=== PATIENT | female | born 1945 | race Caucasian/White ===

== ENCOUNTER → 2017-01-13 | Outpatient (CLI) | payer BC ==
[~2017-01-13] MED LIST: ASCO500T16 PO; CALC500C3 PO; CHOL200010 PO; CLON0.5T3 PO; CLTP PO; DICL1GEL12 TOP; DOCU-94 PO; IBUP-1459 PO; LEVO50TA6 PO; MAGN400T6 PO; MISCCAP82 PO; MULT-506 PO; NXM/40 PO; OMEG10007 PO; VTMB12UNK PO; WHEAOIL4 PO; [UNRECOGNIZED DRUG - CODE] PO; [UNRECOGNIZED DRUG - OTHER] PO
--- NOTE | 2017-01-13 15:55 | MAMMOGRAPHY REPORT ---
BILATERAL DIGITAL SCREENING MAMMOGRAM WITH CAD: 01/13/2017 TECHNIQUE: Current study was also evaluated with a Computer Aided Detection (CAD) system. Bilatera l CC and MLO views were obtained. COMPARISON: Comparison is made to exams dated: 12/30/2015 mammogram, 12/07/2013 mammogram, 12/17/2014 m ammogram, 12/13/2013 mammogram, 11/23/2012 mammogram, and 11/20/2011 mammogram - [facility]. BREAST COMPOSITION: There are scattered areas of fibroglandular density in both breasts. FINDINGS: No suspicious masses, calcifications, or areas of architectural distortion are noted in e ither breast. There has been no significant interval change compared to prior exams. Bilateral jerzy gn-appearing calcifications are not significantly changed. Asymmetry seen within the left lateral b reast is stable compared to prior exams including the 2007 exam. IMPRESSION: ACR BI-RADS CATEGORY 2: BENIGN There is no mammographic evidence of malignancy. A 1 year screening mammogram is recommended. The p atient will receive written notification of the results. Approximately 10% of breast cancers are not detected with mammography. A negative mammographic repor t should not delay biopsy if a clinically suggestive mass is present. Marlene Flores M.D. ah/:01/13/2017 12:58:01 Adobe Maker: Jena GUERRA(Afsaneh)(M), [facility] letter sent: Normal 1/2 BI-RADS Code: ACR BI-RADS Category 2: Benign
== END | disposition home or self-care (01) ==
LOC: C.MAMM 11:17
PROVIDERS: ATTEND Obstetrics & Gynecology
DX: Z12.31 Encounter for screening mammogram for malignant neoplasm of breast (principal)

== ENCOUNTER → 2017-02-11 | Outpatient (CLI) | payer BC ==
[~2017-02-11] MED LIST changes: +CALC500C70 PO; +CYAN100T PO; +MISCCAP80 PO; +MISCTAB26 PO; +MISCTAB78 PO; +PYRI100T4 PO; +TURM1CAP4 PO; +VITATAB19 PO
== END | disposition home or self-care (01) ==
LOC: C.MAMM 10:37
PROVIDERS: ATTEND Family Medicine
DX: M85.88 Other specified disorders of bone density and structure, other site (principal)

== ENCOUNTER → 2017-03-04 | Outpatient (CLI) | payer BC ==
--- NOTE | 2017-03-04 11:31 | DIAGNOSTIC IMAGING REPORT ---
CHEST 2 VIEWS ROUTINE CLINICAL HISTORY: SHORTNESS OF BREATH R06.02 COMPARISON STUDY: 10/28/2015 FINDINGS: There is a thoracolumbar scoliosis. The heart remains enlarged. There is a retrocardiac opacity consistent with a hiatal hernia. There is no failure. There is no focal pulmonary consolidation. No significant pleural effusions are visualized.[ IMPRESSION: 1. Cardiomegaly and hiatal hernia 2. No active disease in the chest. Electronically signed by: Fidel Samayoa M.D. 03/04/2017 11:30 AM Dictated Date/Time: 03/04/2017 11:29 AM
== END | disposition home or self-care (01) ==
LOC: C.RAD 10:59
PROVIDERS: ATTEND Family Medicine
DX: R06.02 Shortness of breath (principal); K44.9 Diaphragmatic hernia without obstruction or gangrene; I51.7 Cardiomegaly

== ENCOUNTER → 2017-03-05 | Outpatient (CLI) | payer BC ==
[~2017-03-05] MED LIST changes: +OPTIRAY 320 IV PRN
--- NOTE | 2017-03-05 13:14 | DIAGNOSTIC IMAGING REPORT ---
CT ANGIOGRAM OF THE CHEST CLINICAL HISTORY: Dyspnea. COMPARISON STUDY: Chest x-ray dated 03/04/2017. TECHNIQUE: Following the IV administration of 86 cc of Optiray 320, CT angiogram of the chest was performed from the upper abdomen to the thoracic inlet utilizing the pulmonary embolus protocol. Images are reviewed in the axial, sagittal, and coronal planes. 3-D MIPS images are created and assessed. IV contrast was administered without complication. The examination is modestly degraded by motion artifact. CT DOSE: 184.51 mGy.cm FINDINGS: Thyroid: Imaged portions of the thyroid gland are normal in size and attenuation. A 9 mm peripherally calcified nodule is seen in the left lobe. Thoracic aorta: There is mild atherosclerotic calcification of the thoracic aorta, which is normal in caliber and demonstrates standard 3-vessel arch anatomy. No dissection is seen. Pulmonary vasculature: The pulmonary trunk is normal in caliber. There are no filling defects identified in main, lobar, or segmental pulmonary branches to suggest pulmonary embolus. Heart: The heart is enlarged and without pericardial effusion. Lungs and pleural spaces: Emphysematous change is noted. There is no airspace consolidation or pleural effusion. The trachea and central airways are clear. Atelectasis versus scarring is noted at the medial left lung base. There is a 5 mm right upper lobe nodule seen on image #182. Mediastinum: There is no mediastinal lymphadenopathy. Ani: Clear. Axillae: There is no axillary lymphadenopathy. Upper abdomen: There is a moderate to large hiatal hernia. Partially visualized upper abdominal viscera is otherwise within normal limits. Skeletal structures: The skeletal structures are osteopenic. Degenerative change and scoliosis are seen in the thoracic spine. Arthritic change is also present in the shoulders. No lytic or blastic bony lesions are seen. Hemangiomas are seen in the bodies of T3 and T12. IMPRESSION: 1. There is no evidence of pulmonary embolus in the main, lobar, or segmental pulmonary arteries. 2. Cardiomegaly and emphysema. 3. Moderate to large hiatal hernia. 4. There is no airspace consolidation or pleural effusion. 5. There is a 5 mm right apical pulmonary nodule. This can be followed as per the Fleischner criteria. See below. Please refer to below summary of Fleischner criteria recommendations for follow-up of incidental CT nodules (Grant Sandhu, Guidelines for management of small pulmonary nodules detected on CT scans: A statement from the Fleischner Society, Radiology 237: [phone].) SOLID NODULES Solitary nodule size: <6 mm * low risk patients: no follow-up needed * high risk patients: optional CT at 12 months Solitary nodule size: 6-8 mm * low risk patients: follow-up at 6-12 months, then consider further follow-up at 18-24 months * high risk patients: initial follow-up CT at 6-12 months and then at 18-24 months if no change Solitary nodule size: >8 mm * either low or high risk patients - consider follow-up CT at 3 months, and/or CT-PET, and/or biopsy Multiple nodules size: <6 mm * low risk patients: no routine follow-up * high risk patients: optional CT at 12 months Multiple nodules size: 6-8 mm * low risk patients: follow-up at 3-6 months, then consider further follow-up at 18-24 months * high risk patients: follow-up at 3-6 months, then at 18-24 months if no change Multiple nodules size: >8 mm * low risk patients: follow-up at 3-6 months, then consider further follow-up at 18-24 months * high risk patients: follow-up at 3-6 months, then at 18-24 months if no change Note: newly detected indeterminate nodule in persons 35 years of age or older. * low risk patients: minimal or absent history of smoking and/or other known risk factors * high risk patients: history of smoking or of other known risk factors (e.g. first degree relative with lung cancer, or exposure to asbestos, radon, uranium) * if a nodule up to 8 mm is partly solid or is ground glass further follow-up is required after 24 months to exclude possible slow growing adenocarcinoma (LA) SUBSOLID NODULES Solitary pure ground-glass nodule * nodule size <6 mm - no CT follow-up required * nodule size >=6 mm - follow-up CT at 6-12 months, then every 2 years until 5 years Solitary part-solid nodule * nodule size <6 mm - no CT follow-up required * nodule size >=6 mm - follow-up CT at 3-6 months. If unchanged, and solid component remains <6 mm, then annual follow-up for 5 years Multiple subsolid nodules * nodule size <6 mm - follow-up CT at 3-6 months, consider further follow-up at 2 and 4 years if stable * nodule size >=6 mm - follow-up CT at 3-6 months, subsequent management based on the most suspicious nodule(s) Electronically signed by: Horace Gonzalez M.D. 03/05/2017 1:13 PM Dictated Date/Time: 03/05/2017 1:07 PM
--- NOTE | 2017-03-05 15:16 | DIAGNOSTIC IMAGING REPORT ---
Venous Doppler left leg LEFT VENOUS DOPP LOWER EXT UNILAT CLINICAL HISTORY: PAIN IN LEFT LEG pain TECHNIQUE: Venous Doppler COMPARISON STUDY: None FINDINGS: Normal study IMPRESSION: Normal study Electronically signed by: Trenton Randle M.D. 03/05/2017 3:14 PM Dictated Date/Time: 03/05/2017 3:14 PM
== END | disposition home or self-care (01) ==
LOC: C.CTS 12:36
PROVIDERS: ATTEND Family Medicine
DX: R06.02 Shortness of breath (principal); R79.1 Abnormal coagulation profile; I51.7 Cardiomegaly; J43.9 Emphysema, unspecified; K44.9 Diaphragmatic hernia without obstruction or gangrene; R91.1 Solitary pulmonary nodule

== ENCOUNTER → 2017-04-27 | Outpatient (CLI) | payer BC ==
[~2017-04-27] MED LIST changes: -CALC500C70 PO; -CYAN100T PO; -MISCCAP80 PO; -MISCTAB26 PO; -MISCTAB78 PO; -OPTIRAY 320 IV PRN; -PYRI100T4 PO; -TURM1CAP4 PO; -VITATAB19 PO
--- NOTE | 2017-04-27 15:27 | DIAGNOSTIC IMAGING REPORT ---
ULTRASOUND OF THE THYROID GLAND CLINICAL HISTORY: Thyroid nodule. COMPARISON STUDY: Chest CT dated 03/05/2017. TECHNIQUE: Real-time, grayscale, and color flow sonography of the thyroid gland is performed utilizing a high-frequency linear transducer. Images are reviewed in the transverse and longitudinal planes. FINDINGS: Right lobe: The right lobe of the thyroid gland is normal in size and heterogeneous in echotexture, measuring 4.4 x 1.7 x 1.1 cm. Left lobe: The left lobe of the thyroid gland is normal in size and heterogeneous in echotexture, measuring 4.0 x 1.6 x 1.3 cm. There is a densely calcified nodule in the lower pole measuring 1.0 x 0.6 x 0.8 cm. A hypoechoic nodule in the midpole measures 1.0 x 0.8 x 0.8 cm, and a hypoechoic nodule in the lower pole measures 0.6 x 0.5 x 0.5 cm. Isthmus: The thyroid isthmus is normal in appearance and measures 0.4 cm in AP diameter. IMPRESSION: 1. The thyroid gland is heterogeneous in echotexture. Correlation with serum thyroid function studies is recommended. 2. There are 3 nodules in the left lobe of the thyroid gland measuring up to 1.0 cm. These do not meet sonographic criteria for fine-needle aspiration. Precautionary follow-up examination in one years time is recommended. Electronically signed by: Horace Gonzalez M.D. 04/27/2017 3:25 PM Dictated Date/Time: 04/27/2017 3:23 PM
== END | disposition home or self-care (01) ==
LOC: C.ULTR 14:51
PROVIDERS: ATTEND Family Medicine
DX: E04.1 Nontoxic single thyroid nodule (principal)

== ENCOUNTER → 2017-09-27 | Outpatient (CLI) | payer BC ==
[~2017-09-27] MED LIST changes: +CALC500C70 PO; -CLTP PO; +CYAN100T PO; +MISCCAP80 PO; -MISCCAP82 PO; +MISCTAB26 PO; +MISCTAB78 PO; +PYRI100T4 PO; +TURM1CAP4 PO; +VITATAB19 PO; -VTMB12UNK PO; -WHEAOIL4 PO; -[UNRECOGNIZED DRUG - CODE] PO; -[UNRECOGNIZED DRUG - OTHER] PO
--- NOTE | 2017-09-27 11:00 | DIAGNOSTIC IMAGING REPORT ---
SOFT TISS HEAD/NECK-THYROID HISTORY: Thyroid nodule THYROID NODULE COMPARISON: 04/27/2017 FINDINGS: Right lobe: Maximum dimension 3.3 cm. Slightly heterogeneously internal architecture. Left lobe: Mildly heterogeneous. 3 nodules unchanged in the prior exam. These do not currently exceed 9 mm. Isthmus: No nodules. IMPRESSION: Unchanged exam from the prior study. Low suspicion nodularity left lobe stable. 1 year follow-up is suggested. The above report was generated using voice recognition software. It may contain grammatical, syntax or spelling errors. Electronically signed by: Trenton Randle M.D. 09/27/2017 10:59 AM Dictated Date/Time: 09/27/2017 10:55 AM
== END | disposition home or self-care (01) ==
LOC: C.ULTR 10:15
PROVIDERS: ATTEND Family Medicine
DX: E04.1 Nontoxic single thyroid nodule (principal)

== ENCOUNTER → 2018-01-20 | Outpatient (CLI) | payer BC ==
--- NOTE | 2018-01-20 14:44 | MAMMOGRAPHY REPORT ---
BILATERAL DIGITAL SCREENING MAMMOGRAM TOMOSYNTHESIS WITH CAD: 01/20/2018 CLINICAL HISTORY: Routine screening. TECHNIQUE: Breast tomosynthesis in addition to standard 2D mammography was performed. Current study was also evaluated with a Computer Aided Detection (CAD) system. COMPARISON: Comparison is made to exams dated: 01/13/2017 mammogram, 12/30/2015 mammogram, 12/17/2014 ma mmogram, 12/07/2013 mammogram, 11/23/2012 mammogram, and 11/20/2011 mammogram - [facility] er. BREAST COMPOSITION: There are scattered areas of fibroglandular density in both breasts. FINDINGS: No suspicious masses, calcifications, or areas of architectural distortion are noted in ei ther breast. There has been no significant interval change compared to prior exams. Scattered bilater al benign-appearing calcifications are not significantly changed. IMPRESSION: ACR BI-RADS CATEGORY 2: BENIGN There is no mammographic evidence of malignancy. A 1 year screening mammogram is recommended. The pa tient will receive written notification of the results. Approximately 10% of breast cancers are not detected with mammography. A negative mammographic report should not delay biopsy if a clinically suggestive mass is present. Marlene Flores M.D. ah/:01/20/2018 10:32:43 Spray Painter: Katerine GUERRA(Afsaneh)(Davian), [facility] letter sent: Normal 1/2 BI-RADS Code: ACR BI-RADS Category 2: Benign
== END | disposition home or self-care (01) ==
LOC: C.MAMM 10:07
PROVIDERS: ATTEND Family Medicine
DX: Z12.31 Encounter for screening mammogram for malignant neoplasm of breast (principal)

== ENCOUNTER → 2018-05-19 | Outpatient (CLI) | payer BC ==
[~2018-05-19] MED LIST changes: -CLON0.5T3 PO; +KLN/5 PO
== END | disposition home or self-care (01) ==
LOC: C.PATHSPEC 11:43
PROVIDERS: ATTEND Plastic Surgery
DX: L98.9 Disorder of the skin and subcutaneous tissue, unspecified (principal)

== ENCOUNTER → 2018-05-23 | Outpatient (CLI) | payer BC ==
--- NOTE | 2018-05-20 14:49 | DIAGNOSTIC IMAGING REPORT ---
SCOLIOSIS AP LATERAL CLINICAL HISTORY: SCOLIOSIS COMPARISON STUDY: 05/21/2015 FINDINGS: There is a thoracolumbar levoscoliosis of 30 degrees. This degree of spinal curvature remains similar to the preceding study. IMPRESSION: Thoracolumbar levoscoliosis of 30 degrees. Electronically signed by: Fidel Samayoa M.D. 05/20/2018 2:47 PM Dictated Date/Time: 05/20/2018 11:21 AM
== END | disposition home or self-care (01) ==
LOC: C.RDSM 10:49
PROVIDERS: ATTEND Orthopaedic Surgery
DX: M41.9 Scoliosis, unspecified (principal); M41.85 Other forms of scoliosis, thoracolumbar region

== ENCOUNTER 2024-06-05 06:42 | Observation (INO) ==
--- NOTE | 2024-01-25 12:56 | PAT Medication Instructions ---
Medication Instructions Date of Service January 25, 2024 Home Medications ascorbic acid (vitamin C) 500 mg tablet (Vitamin C) 500 mg PO QAM calcium carbonate (Tums) 200 mg PO BID PRN cholecalciferol (vitamin D3) 50 mcg (2,000 unit) capsule (Vitamin D3) 2,000 unit PO QAM clonazepam 0.5 mg tablet (Klonopin) 0.5 mg PO TID diclofenac sodium 1 % topical gel (Voltaren) 2 g topical QAM esomeprazole magnesium 40 mg capsule,delayed release (Nexium) 40 mg PO QPM glucosamine-chondroitin 250 mg-200 mg tablet (Osteo Bi-Flex) 1 tab PO QAM lactobacillus combination no.4 3 billion cell capsule (Probiotic) 3,000 mmu cells PO QAM levothyroxine 50 mcg capsule 50 mcg PO QPM magnesium oxide 400 mg PO QAM multivitamin 1 tab PO QAM omega 2-zer-cvs-fish oil 1,000 mg (120 mg-180 mg) capsule (Fish Oil) 1 cap PO QAM calcium carbonate 600 mg-vitamin D3 20 mcg (800 unit) chewable tablet (Caltrate 600 plus D) 1 tab PO BID amlodipine 10 mg tablet 10 mg PO HS tetrahydrozoline 0.05 % eye drops (Visine) 1 drp ophthalmic (eye) TID PRN coenzyme Q10 10 mg capsule (Co Q-10) 10 mg PO QAM vitamin A 10,000 unit tablet 1,500 mcg PO QAM docusate sodium 100 mg capsule (Colace) 100 mg PO BID apixaban 5 mg tablet (Eliquis) 2.5 mg PO BID evolocumab 140 mg/mL subcutaneous syringe (Repatha Syringe) 140 mg subcut UD ASK your prescriber and surgeon apixaban 5 mg tablet (Eliquis) 2.5 mg PO BID evolocumab 140 mg/mL subcutaneous syringe (Repatha Syringe) 140 mg subcut UD STOP taking 2 weeks before surgery (or as soon as possible if surgery is within 2 weeks) glucosamine-chondroitin 250 mg-200 mg tablet (Osteo Bi-Flex) 1 tab PO QAM omega 9-cmk-snb-fish oil 1,000 mg (120 mg-180 mg) capsule (Fish Oil) 1 cap PO QAM coenzyme Q10 10 mg capsule (Co Q-10) 10 mg PO QAM vitamin A 10,000 unit tablet 1,500 mcg PO QAM STOP taking 24 hours before surgery diclofenac sodium 1 % topical gel (Voltaren) 2 g topical QAM DO NOT take the morning of surgery ascorbic acid (vitamin C) 500 mg tablet (Vitamin C) 500 mg PO QAM calcium carbonate (Tums) 200 mg PO BID PRN cholecalciferol (vitamin D3) 50 mcg (2,000 unit) capsule (Vitamin D3) 2,000 unit PO QAM lactobacillus combination no.4 3 billion cell capsule (Probiotic) 3,000 mmu cells PO QAM magnesium oxide 400 mg PO QAM multivitamin 1 tab PO QAM calcium carbonate 600 mg-vitamin D3 20 mcg (800 unit) chewable tablet (Caltrate 600 plus D) 1 tab PO BID docusate sodium 100 mg capsule (Colace) 100 mg PO BID Take morning of surgery With a small sip of water, OTHERWISE NOTHING TO EAT OR DRINK AFTER MIDNIGHT: clonazepam 0.5 mg tablet (Klonopin) 0.5 mg PO TID tetrahydrozoline 0.05 % eye drops (Visine) 1 drp ophthalmic (eye) TID PRN(if needed) Take evening before surgery clonazepam 0.5 mg tablet (Klonopin) 0.5 mg PO TID esomeprazole magnesium 40 mg capsule,delayed release (Nexium) 40 mg PO QPM levothyroxine 50 mcg capsule 50 mcg PO QPM calcium carbonate 600 mg-vitamin D3 20 mcg (800 unit) chewable tablet (Caltrate 600 plus D) 1 tab PO BID amlodipine 10 mg tablet 10 mg PO HS tetrahydrozoline 0.05 % eye drops (Visine) 1 drp ophthalmic (eye) TID PRN(if needed) docusate sodium 100 mg capsule (Colace) 100 mg PO BID Other Notes If you have any questions please call us at [phone] or [phone] or [phone] or [phone]
--- NOTE | 2024-01-26 11:07 | PAT Medication Instructions ---
Medication Instructions Date of Service January 26, 2024 Home Medications ascorbic acid (vitamin C) 500 mg tablet (Vitamin C) 500 mg PO QAM calcium carbonate (Tums) 200 mg PO BID PRN cholecalciferol (vitamin D3) 50 mcg (2,000 unit) capsule (Vitamin D3) 2,000 unit PO QAM clonazepam 0.5 mg tablet (Klonopin) 0.5 mg PO TID diclofenac sodium 1 % topical gel (Voltaren) 2 g topical QAM esomeprazole magnesium 40 mg capsule,delayed release (Nexium) 40 mg PO QPM glucosamine-chondroitin 250 mg-200 mg tablet (Osteo Bi-Flex) 1 tab PO QAM lactobacillus combination no.4 3 billion cell capsule (Probiotic) 3,000 mmu cells PO QAM levothyroxine 50 mcg capsule 50 mcg PO QAM magnesium oxide 400 mg PO QAM multivitamin 1 tab PO QAM omega 5-cny-zkd-fish oil 1,000 mg (120 mg-180 mg) capsule (Fish Oil) 1 cap PO QAM calcium carbonate 600 mg-vitamin D3 20 mcg (800 unit) chewable tablet (Caltrate 600 plus D) 1 tab PO BID amlodipine 10 mg tablet 10 mg PO HS tetrahydrozoline 0.05 % eye drops (Visine) 1 drp ophthalmic (eye) TID PRN coenzyme Q10 10 mg capsule (Co Q-10) 10 mg PO QAM vitamin A 10,000 unit tablet 1,500 mcg PO QAM docusate sodium 100 mg capsule (Colace) 100 mg PO BID apixaban 5 mg tablet (Eliquis) 2.5 mg PO BID evolocumab 140 mg/mL subcutaneous syringe (Repatha Syringe) 140 mg subcut UD losartan 25 mg tablet 25 mg PO QPM ASK your prescriber and surgeon apixaban 5 mg tablet (Eliquis) 2.5 mg PO BID evolocumab 140 mg/mL subcutaneous syringe (Repatha Syringe) 140 mg subcut UD STOP taking 2 weeks before surgery (or as soon as possible if surgery is within 2 weeks) glucosamine-chondroitin 250 mg-200 mg tablet (Osteo Bi-Flex) 1 tab PO QAM omega 1-ryl-fnb-fish oil 1,000 mg (120 mg-180 mg) capsule (Fish Oil) 1 cap PO QAM coenzyme Q10 10 mg capsule (Co Q-10) 10 mg PO QAM vitamin A 10,000 unit tablet 1,500 mcg PO QAM STOP taking 24 hours before surgery diclofenac sodium 1 % topical gel (Voltaren) 2 g topical QAM DO NOT take the morning of surgery ascorbic acid (vitamin C) 500 mg tablet (Vitamin C) 500 mg PO QAM calcium carbonate (Tums) 200 mg PO BID PRN cholecalciferol (vitamin D3) 50 mcg (2,000 unit) capsule (Vitamin D3) 2,000 unit PO QAM lactobacillus combination no.4 3 billion cell capsule (Probiotic) 3,000 mmu cells PO QAM magnesium oxide 400 mg PO QAM multivitamin 1 tab PO QAM calcium carbonate 600 mg-vitamin D3 20 mcg (800 unit) chewable tablet (Caltrate 600 plus D) 1 tab PO BID docusate sodium 100 mg capsule (Colace) 100 mg PO BID Take morning of surgery With a small sip of water, OTHERWISE NOTHING TO EAT OR DRINK AFTER MIDNIGHT: levothyroxine 50 mcg capsule 50 mcg PO QAM clonazepam 0.5 mg tablet (Klonopin) 0.5 mg PO TID tetrahydrozoline 0.05 % eye drops (Visine) 1 drp ophthalmic (eye) TID PRN(if needed) Take evening before surgery losartan 25 mg tablet 25 mg PO QPM clonazepam 0.5 mg tablet (Klonopin) 0.5 mg PO TID esomeprazole magnesium 40 mg capsule,delayed release (Nexium) 40 mg PO QPM levothyroxine 50 mcg capsule 50 mcg PO QPM calcium carbonate 600 mg-vitamin D3 20 mcg (800 unit) chewable tablet (Caltrate 600 plus D) 1 tab PO BID amlodipine 10 mg tablet 10 mg PO HS tetrahydrozoline 0.05 % eye drops (Visine) 1 drp ophthalmic (eye) TID PRN(if needed) docusate sodium 100 mg capsule (Colace) 100 mg PO BID Other Notes If you have any questions please call us at [phone] or [phone] or [phone] or [phone]
--- NOTE | 2024-05-16 13:06 | Anesthesiology Consultation ---
Date of Service May 16, 2024 Assessment & Plan (1) Encounter for pre-operative examination: - PCP and cardiology pre-operative evaluations 05/25/24 per patient. PAT testing to be faxed to [facility] PCP and cardiology. Patient mentions she also has a hematology routine follow-up 05/25/24. - patient states she was advised to have PCP and cardiology pre-operative evaluations by a provider with her PCP office. I advised given that she should keep upcoming appointments with PCP and cardiology before surgery. Patient verbalized understanding. - severe PONV. patient is not candidate for scopolamine patch given age and glaucoma. Final discussion to be to assigned anesthesiologist and patient DOS, Dr. Newsome agrees with this plan. - will request 2023 stress test from [facility] cardiology. - cardiology office visit 01/18/24 pre-operative evaluation [facility]: "...frequent PVCs, htn and dyslipidemia...has not had any worsening sob or chest pain...irregular rhythm on her blood pressure cuff around [facility]...[facility] did not flag it as afib and called it inconclusive. She felt unwell but no palpitations...no edema. Blood pressures at home are mainly running 130s and 140s systolically...dizziness sometimes but no orthostatic symptoms...scheduled for shoulder replacement on February 24...Holter monitor showing PVCs comprising 28% of beats...add losartan 25 mg...she will consider it...unable to tolerate metoprolol or diltiazem and so was not taking AV sandro blockers for her PVCs but she does not sense them...not having any concerning anginal symptoms...euvolemic...moderate risk for cardiovascular complication naman operatively...does not need further cardiac testing prior to her surgery..." - Outpatient joint pathway: Per surgeon and patient, plan for outpatient joint program. Per discussion with Dr. Newsome, patient is not an acceptable candidate for [facility] from anesthesia perspective given age and co- morbidities. Patient made aware, she verbalized understanding and agreement. Surgeon's office made aware. - Patient had questions regarding anesthesia and PONV in addition to overall anxiety regarding surgery. She also expressed she would like to bring her own medications from a cost standpoint. I advised she must give these to nursing for administration-she verbalized understanding and agreement. Total time in direct patient care 60 minutes. She expressed questions/concerns were adequately addressed and denied additional questions or concerns. Chart Review Chart Review: Pending: Refer to Additional Notes / Consult section and Patient seen in Pre Admission Testing Teaching & Discussion Pre-Anesthesia Teaching/Discussion Notes: Instructed NPO after midnight before surgery, except medications with 15 cc of water. Medication instructions provided according to the PAT guidelines. History Surgery Operation Date: 02/25/24 10:00 Proposed Procedures p Right Reverse Total Shoulder Arthroplasty - Max Ling DO Operation Date: 06/05/24 13:40 Proposed Procedures p Right Reverse Total Shoulder Arthroplasty - Max Ling, DO Height/Weight Height: 4 ft 11 in Weight: 58.8 kg Allergies Allergy/AdvReac Type Severity Reaction Status Date / Time timolol Allergy Intermediate Dyspnea Verified 05/11/24 11:08 clams AdvReac Mild N/V, Verified 05/11/24 11:08 diarrhea, "questionable allergy?" moxifloxacin AdvReac Mild Jittery, Verified 05/11/24 11:08 difficulty sleeping [id number] Reductase AdvReac Mild Constipation, Verified 05/11/24 11:08 Inhibitor body [[id number] Reductase aches, Inhibitor] fatigue muscle relaxants Allergy Severe dyspnea Uncoded 05/16/24 13:39 Medications Home Medications Medication Instructions Recorded Confirmed Last Taken ascorbic acid (vitamin C) 500 mg 500 mg PO QAM 11/28/18 05/11/24 12/16/22 tablet (Vitamin C) calcium carbonate (Tums) 200 mg PO BID PRN Heartburn 11/28/18 05/11/24 10/01/21 cholecalciferol (vitamin D3) 50 2,000 unit PO QAM 11/28/18 05/11/24 12/16/22 mcg (2,000 unit) capsule (Vitamin D3) clonazepam 0.5 mg tablet (Klonopin) 0.5 mg PO TID 11/28/18 05/11/24 12/16/22 07:00 diclofenac sodium 1 % topical gel 2 g topical QAM 11/28/18 05/11/24 12/16/22 (Voltaren) esomeprazole magnesium 40 mg 40 mg PO QPM 11/28/18 05/11/24 12/15/22 capsule,delayed release (Nexium) glucosamine-chondroitin 250 mg-200 1 tab PO QAM 11/28/18 05/11/24 12/16/22 mg tablet (Osteo Bi-Flex) lactobacillus combination no.4 3 3,000 mmu cells PO QAM 11/28/18 05/11/24 12/16/22 billion cell capsule (Probiotic) levothyroxine 50 mcg capsule 50 mcg PO QAM 11/28/18 05/11/24 12/16/22 magnesium oxide 400 mg PO QAM 11/28/18 05/11/24 12/16/22 multivitamin 1 tab PO QAM 11/28/18 05/11/24 12/16/22 omega [id number]-fish oil 1,000 mg 1 cap PO QAM 11/28/18 05/11/24 12/16/22 (120 mg-180 mg) capsule (Fish Oil) calcium carbonate 600 mg-vitamin 1 tab PO BID 03/07/19 05/11/24 12/16/22 07:00 D3 20 mcg (800 unit) chewable tablet (Caltrate 600 plus D) amlodipine 10 mg tablet 10 mg PO HS 08/21/19 05/11/24 12/15/22 coenzyme Q10 10 mg capsule (Co 10 mg PO QAM 05/01/21 05/11/24 12/16/22 Q-10) vitamin A 10,000 unit tablet 1,500 mcg PO QAM 05/01/21 05/11/24 12/16/22 docusate sodium 100 mg capsule 100 mg PO BID 05/26/21 05/11/24 12/16/22 07:00 (Colace) apixaban 5 mg tablet (Eliquis) 2.5 mg PO BID 09/30/21 05/11/24 12/16/22 07:00 evolocumab 140 mg/mL subcutaneous 140 mg subcut UD 09/08/22 05/11/24 09/16/22 05:00 syringe (Repatha Syringe) losartan 25 mg tablet 25 mg PO QPM 01/26/24 05/11/24 Unknown ciprofloxacin HCl 0.3 % eye drops 1 - 2 drp ophthalmic (eye) UD PRN 05/11/24 05/11/24 Unknown "eye problems" conjugated estrogens 0.625 mg 0.625 mg PO DAILY 05/11/24 05/11/24 Unknown tablet (Premarin) fluticasone propionate 50 1 spray intranasal DAILY 05/11/24 05/11/24 Unknown mcg/actuation nasal spray,suspension teriparatide 20 mcg/dose (600 20 mcg subcut DAILY 05/11/24 05/11/24 Unknown mcg/2.4 mL) subcutaneous pen injector (Forteo) zinc 1 tab PO DAILY 05/11/24 05/11/24 Unknown Past Medical History Medical History Anxiety Dyslipidemia GERD (gastroesophageal reflux disease) controlled, stable per pt Glaucoma Hiatal hernia History of blood clots 2020, ankle, unknown etiology Taking Eliquis History of COVID-19 05/2022: resolved History of panic attacks Hx of basal cell carcinoma Hypertension controlled, stable per pt Hypothyroidism Internal hemorrhoids Osteoarthritis Rotator cuff tear arthropathy of right shoulder Scoliosis Sensorineural hearing loss (SNHL) of both ears Sleep apnea CPAP-compliant Temporomandibular joint disorder No clicking or locking; wear splint at night Patient denies h/o stroke, seizures, heart attack, heart failure, DM, or blood transfusions. Exercise / Class Metabolic Activity II 4-5 Yardwork/Stairs/Walk up hill (denies chest discomfort or shortness of breath with one flight of stairs) Past Family History Family History Mother Family history of heart attack Family history of stroke Father Family history of heart attack Past Surgical History Surgical History H/O bursectomy Left Open Trochanteric Bursectomy H/O foot surgery Left x3, Right x1 H/O shoulder surgery Left x1, bicep History of section (~1979) emergency per patient History of colonoscopy History of eye surgery x17 (r/t glaucoma, and 2 cataract sx) History of hysterectomy Total BSO (right 2013, left 2010) R/t postmenopausal bleeding, fibroids History of repair of rotator cuff Right x2 History of tooth extraction Hx of basal cell carcinoma excision "Near eye" region Hx of bilateral cataract extraction Nausea and vomiting after administration of anesthetic agent *Severe* S/P epidural steroid injection Multiple Past Anesthesia History No Hx of Anesthesia Complications and No Family Hx of Anesthesia Complications History of PONV History of PONV (severe per patient-unsure if has had scop patch in the past) and Hx of Motion Sickness Social History Smoking Status: Former smoker tobacco type: cigarettes Smoking cigarettes per day: 1 ppd Do You Dip or Chew Tobacco: No Smoking End Date: 1992 Hx Alcohol Use: Yes Alcohol type: wine and hard liquor alcohol intake frequency: holidays/special occasions only Hx Substance Use: No substance use type: does not use Review of Systems Patient denies chest pain, shortness of breath, dyspnea on exertion, fever, chills, cough, wheezing, or palpitations. Physical Exam Vital Signs Vitals BP 127/80 P 69 SP02 96% on RA RESP 18 Physical Patient resting comfortably in chair in no acute distress, alert and oriented, responding appropriately throughout visit Full cervical extension range of motion without pain TMD 3.5 finger breadths Mallampati Score 2 Dentition: intact, denies chipped or loose teeth, caps/crowns, implants or bridges Lungs: normal respiratory effort. Good air movement, clear throughout to auscultation, no adventitious breath sounds Cardiac: regular rate and rhythm, no murmurs noted Carotid arteries: negative bruit bilat Lab Results Anesthesia Preop Results Results Anesthesia Widget: WBC 7.47 K/ul (4.8-10.8) 05/16/24 Hgb 12.2 g/dl (12.0-16.0) 05/16/24 Hct 36.9 % (37.0-47.0) L 05/16/24 Plt 260 K/uL (130-400) 05/16/24 Na 137 mmol/L (136-145) 05/16/24 K 4.1 mmol/L (3.5-5.1) 05/16/24 Cl 102 mmol/L (98-107) 05/16/24 CO2 28 mmol/L (21-32) 05/16/24 BUN 19 mg/dl (6-23) 05/16/24 Creat 0.50 mg/dl (0.6-1.2) L 05/16/24 Glucose Level 95 mg/dl (70-99(Fasting)) 05/16/24 PT 10.2 Seconds (9.0-12.0) 05/16/24 PTT 25 Seconds (21-31) 05/16/24 INR 0.9 (0.9-1.1) 05/16/24 Blood Type B Positive 05/16/24 Antibody Screen NEGATIVE 05/16/24 Testing Electrocardiogram Date: 05/16/24 Sinus rhythm with premature supraventricular complexes, rate 77 bpm Minimal voltage criteria for LVH, may be normal variant Cannot rule out anterior infarct, age undetermined Chest X-Ray Date: 05/16/24 No acute chest disease. Echocardiogram Date: 07/20/23 EF 65% Asymmetric basal septal hypertrophy of the elderly No LV regional wall motion abnormalities Grade I diastolic dysfunction Mildly dilated LA Dilated proximal ascending aorta at 3.4 cm Mild mitral valve regurgitation Moderate tricuspid regurgitation Cervical Spine Date: 12/09/23 MRI 1. Mild multilevel central canal stenosis, as described above. Moderate multilevel disc space narrowing with small disc osteophyte complexes. 2. Moderate multilevel neural foraminal stenosis, as above. 3. No cervical spine fractures.
--- NOTE | 2024-06-05 06:32 | History & Physical Bridge Note ---
Date of Service June 05, 2024 History & Physical Bridge Note I have examined the patient, reviewed the History & Physical and in the interval since the performance of the History & Physical I have noted the following changes of clinical significance: no changes noted
--- OUTSIDE RECORDS SUMMARY | 2024-06-05 06:51 | External Medical Summary | Summary of Care ---
Author Name Unknown Organization [facility] Address [address] [place] [address] Phone [phone] Care Team Providers Care Finishing Machine Operator Automatic Name Role Phone Dean Watkins MD Primary Care Provider [phone] Reason for Visit * Reason Comments Follow Up Encounter Details Date Type Department Care Team (Late st Contact Info) Description 05/19/2024 3:00 PM EDT Office Visit Hematology/Oncology [facility] [address] [facility] [place] [facility] [place] [address] Reyna Acevedo CRNP [address] [place] [address] Chronic deep vein thrombosis (DVT) of tibial vein of left lower extremity (HCC)* Allergies Active Allergy Reactions Criticality Noted Date Comments Moxifloxacin 05/12/2022 Other reaction(s): "wired", insomnia Pravastatin 05/12/2022 Other reaction(s): constipation Rosuvastatin 05/12/2022 Other reaction(s): muscle pain, wierd feeling, fatigue Sulfites 05/12/2022 Other reaction(s): upper resp symptoms Timolol 02/04/2022 Other reaction(s): asthma documented as of this encounter (statuses as of 05/28/2024) Medications Medication Sig Dispensed Refills Start Date End Date Status KLONOPIN 0.5 MG PO TABSIndications:Karol c disorder 1 TID brand necessary 270 1 10/20/2006 Active amLODIPine Besylate 10 MG Oral Tablet (Norvasc) Take 10 mg by mouth daily. Active Calcium Carbonate 1500 (600 Ca) MG Oral Tablet Take 1 Tablet by mouth 2 times a day with morning and evening meals. Active CoQ10 100 MG Oral Capsule Take by mouth. Active Fish Oil 1000 MG Oral Capsule Take 1,000 mg by mouth daily. Active levothyroxine 25 MCG OR Tablet Take 50 mcg by mouth daily first thing in the morning. (at least 30 min prior to breakfast or other meds) Active Multivitamin Adults Oral Tablet Take by mouth. Active Esomeprazole Magnesium 40 MG Oral Capsule Delayed Release (NexIUM) Take 40 mg by mouth daily before breakfast. Active Osteo Bi-Flex Adv Double St Oral Tablet Take by mouth. Active Probiotic Acidophilus BioBeads Oral Capsule Take 1 Cap by mouth three times a day with meals. Active Vitamin A 2250 MCG (7500 UT) Oral Capsule Take by mouth. Active Vitamin D3 25 MCG (1000 UT) Oral Tablet (Vitamin D3) Take 1,000 Units by mouth daily. Active Vitamin E 100 UNIT Oral Capsule Take 100 Units by mouth daily. Active Zinc 50 MG Oral Tablet Take 50 mg by mouth daily. Active Estrogens Conjugated 0.625 MG Oral Tablet (Premarin) Take by mouth 0.625 mg in the morning. Active Diclofenac Sodium 1 % External Gel (Voltaren) Apply topically to affected area . Apply as needed Active Docusate Sodium 100 MG Oral Capsule (Colace) Take 1 Capsule by mouth in the morning and 1 Capsule before bedtime. Active Acetaminophen 500 MG Oral Tablet (Tylenol Extra Strength) Take 1 Tablet by mouth every 6 hours as needed. Active Tylenol PM Extra Strength 500-25 MG Oral Tablet (diphenhydrAMINE-APA P (sleep)) Take 1 Tablet by mouth 3 times a day as needed for Itching. Active Triamcinolone Acetonide 0.1 % External Cream (Aristocort) Apply topically to affected area 2 times a day . Apply as directed Active Amoxicillin-Pot Clavulanate 875-125 MG Oral Tablet (Augmentin) 07/30/2022 Active Repatha 140 MG/ML Subcutaneous Solution Prefilled Syringe INJECT 140MG UNDER THE SKIN EVERY 2 WEEKS 06/12/2022 Active Fluticasone Propionate 50 MCG/ACT Nasal Suspension (Flonase) Administer into nostril 2 times a day. 05/24/2022 Active Ibuprofen 200 MG Oral Tablet (Motrin) 2 Tablets. 05/26/2021 Acti ve Ketoconazole 2 % External Cream 07/18/2022 Active Magnesium 100 MG Oral Capsule Take by mouth 100 mg in the morning. Active methylPREDNISolone 4 MG Oral Tablet Therapy Pack (Medrol) Take 1 Tablet by mouth. follow package directions Active Apixaban 5 MG Oral Tablet (Eliquis)Indications :Acute deep vein thrombosis (DVT) of tibial vein of left lower extremity (HCC),Elevated d-dimer Take 0.5 Tablets by mouth in the morning and 0.5 Tablets before bedtime. 90 Tablet 1 12/24/2023 Active Vitamin B Complex-C Oral Capsule Take 1 Capsule by mouth in the morning. 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 Negative hypercoagulation work up. saw Dr. Berman. after 2 long distance car rides. Negative hypercoagulation work up. saw Dr. Berman. Hyperlipidemia 02/04/2022 Hypothyroidism 02/04/2022 Glaucoma 02/04/2022 Dislocation of temporomandibular joint 2 Arthritis of carpometacarpal (CMC) joint of both thumbs 02/04/2022 Primary osteoarthritis of both knees 02/04/2022 Hypertension 06/18/2020 Obstructive sleep apnea syndrome 08/01/2010 Overview: on CPAP on CPAP Malignant neoplasm of skin of parts of face 01/16 Overview: Dr. Ester Ruiz ICD-10 update of inactive term Lumbar radiculopathy 01/28/2006 ADVANCE DIRECTIVE INFORMATION 08/19/2005 Overview: No, Advance Directive brochure given to patient at prior appointment. TEMPOROMANDIBULAR JOINT DISORDERS, UNSPECIFIED Overview: Dr. Marco Obregon Panic disorder Overview: Intermittently Glaucoma Overview: Dr. Leal, [facility] documented as of this encounter (statuses as of 05/28/2024) Immunizations Name Administration Dates Next Due COVID-19 mRNA, LNP-s, No Pre serve, 2-Dose Series (Pfizer) 07/14/2021,12/22/2020,11/24/2020 Pneumococcal Conjugate Vacc, 13 Valent (Prevnar) 06/19/2015 Pneumococcal Polysaccharide PPV23 (Pneumovax) 03/18/2011 Seasonal Influenza Virus Vac cine, Unspecified Formulation 08/02/2019,07/21/2018,07/28/2017,07/29,06/19/2015,07/27/2014,10/24/2004 Seasonal Influenza, Quadriva lent Hd (Fluzone Hd) 07/01/2022 Seasonal Influenza, Split, I IV3, With Preserve, Inj 07/07/2021,07/06/2019,07/27/2014 Seasonal Influenza, Trivalen t, High Dose, No Preserve, IM 08/02/2019,07/21/2018,07/28/2017,07/29 TDAP, Age 7 and older, IM (Adacel) 10/08/2014 Varicella Zoster Vaccine (Adult) 02/15/2011 Zoster Vaccine Recombinant (Shingrix) 06/13/2018 ,02/08/2018 documented as of this encounter Social History Tobacco Use Types Packs/Day Years Used Date Smoking Tobacco: Former Cigarettes 1 30 0 10/18/1960 - 10/18/1990 Smokeless Tobacco: Never Alcohol Use Standard Drinks/Week Comments Yes 0 (1 standard drink = 0.6 oz pur e alcohol) Rare Utilities Answer Date Recorded Do you have trouble paying y our heating, water, or electric bill? (Adult - for ages 18 years and over) Not on file 04/04/2024 Is your family able to pay t he heat, water, or electric bill? (Household - for ages 0-17 years) Not on file 04/04/2024 Does your family have access to good internet? (Household - for ages 0-17 years) Not on file 04/04/2024 Social Connections Answer Date Recorded How often do you feel lonely or isolated from those around you? (Adult - for ages 18 years and over) Not on file 04/04/2024 Sex and Gender Information Value Date Recorded Sex Assigned at Female 08/03/2022 8:13 PM EDT Gender Identity Female 08/03/2022 8:13 PM EDT Sexual Orientation Straight 08/03/2022 8: 13 PM EDT Job Start Date Occupation Industry Not on file Not on file Not on file documented as of this encounter Last Filed Vital Signs Vital Sign Reading Time Taken Comments Blood Pressure 146/74 05/19/2024 3:06 PM EDT Pulse 83 05/19/2024 3:06 PM EDT Temperature 36.3 C (97.4 F) 05/19/2024 3:06 PM ED T Respiratory Rate - - Oxygen Saturation 96% 05/19/2024 3:06 PM EDT Inhaled Oxygen Concentration - - Weight 57.9 kg (127 lb 11.2 oz) 05/19/2024 3:06 PM EDT Height - - Body Mass Index 26.69 05/12/2022 1:50 PM EDT documented in this encounter Progress Notes * Reyna Acevedo CRNP - 05/19/2024 3:00 PM EDT Hematology/Oncology Outpatient Clinic note [facility] [address] [place] [address] Name: Mari Mancuso Date: 05/19/2024 CHIEF COMPLAINT: Mari Mancuso is a 78 year old female patient of Dr. Donovan Berman here today for f/u visit today. From Patient chart confirmed with patient. From Dr. Donovan Berman note 11/19/23. HEMATOLOGY/ONCOLOGY DIAGNOSIS: Easy bruising. Normal Platelet count, normal PT and PTT in the past. -she had slightly abnormal Platelet function study with collagen/epinephrine, which could be related to the NSAID treatment that perhaps he was on at that time (May 2020).. Repeat Platelet function study --> normal. (February 2021). - DVT involving the left tibial vein. (08/19/2021). She is on oral estrogen replacement therapy and the she does not want to stop It at this time. CURRENT TREATMENT: She is on Eliquis for left tibial vein thrombosis since early August 2021. 05/15/2022 --> advised her to continue long-term anticoahulant Treatment with Eliquis. Currently she is on Eliquis 2.5 mg twice a day. DIAGNOSTIC WORKUP: She noticed to have some easy bruising involving the both upper extremities distally about a year back, had a following blood workup: Blood workup done on 05/20/2020: -WBC 6900, H&H of 13/39, MCV 89, Platelet count of 186,000. -PT --> 12.4, PTT 27 seconds which is in normal range. Platelet function study (05/20/2020). -with collagen/ epinephrine --> 67 seconds which is on the lower side. (Normal value would be between 80-184 seconds). She has underlying DJD, had been taking NSAID in the past, above Platelet function study may have been done while she was on NSAID treatment. She did not have any other bruising sites, she had several surgical intervention in the past including wisdom teeth extraction, hysterectomy, several eye surgeries, foot surgery, she did not have any bleeding complications. No family history of any kind of bleeding disorder. HISTORY OF PRESENT ILLNESS: Mari Mancuso is a 78 year old female with a history as outlined above. Currently here for f/u visit today. Now taking forteo. Is having reverse shoulder replacement on the right, scheduled for June 05. Has also started on Losartan. Doing well on the Eliquis. Does bruise easily but otherwise denies abnormal bleeding. Denies VTE since last OV. Continues on hormone replacement. Past Medical History: Diagnosis Date Acute deep vein thrombosis (DVT) of lower extremity (HCC) 02/04/2022 after 2 long distance car rides. Negative hypercoagulation work up. saw Dr. Berman. after 2 long distance car rides. Negative hypercoagulation work up. saw Dr. Berman. Arthritis of carpometacarpal (CMC) joint of both thumbs Glaucoma 02/04/2022 Hyperlipidemia 02/04/2022 Hypertension 06/18/2020 Hypothyroidism 02/04/2022 Lumbar radiculopathy 01/28/2006 Malignant neoplasm of skin of parts of face 01/28/2006 Dr. Ester Ruiz ICD-10 update of inactive term Obstructive sleep apnea syndrome 08/01/2010 on CPAP on CPAP Other malignant neoplasm of skin, site unspecified BASAL CELL Panic disorder Intermittently Temporomandibular joint disorders, unspecified Dr. Marco Obregon Past Surgical History: Procedure Laterality Date CARPAL TUNNEL SURGERY Carpal Tunnel repair CARPAL TUNNEL SURGERY 10/18/1993 right, Dr. Mario Schmitt DELIVERY 10/18/1979 Delivery Only COLONOSCOPY 11/19/2005 normal, Dr Russell, [facility] DENTAL SURGERY PROCEDURE NEC 10/18/1984 WISDOM TEETH INFORMATION 97/98/99 8 SURGERIES L EYE SHUNT INFORMATION 1944 negative gb US LIGATE/CUT OVIDUCT(S) 10/18/1986 Tubal Ligation MAMMOGRAM - BILATERAL 08/05/2000 skip birad 2 MAMMOGRAM SCREENING-BILATERAL 09/18/2005 benign findings, yearly mammograms appropriate, birad code 2 OTHER Multiple surgies on left eye for glaucoma PAP SCREEN 09/18/2005 satisfactory for evaluation, dr. 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 Employer: [employer] [address] [place] [address] Tobacco Use Smoking status: Former Current packs/day: 0.00 Average packs/day: 1 pack/day for 30.0 years (30.0 ttl pk-yrs) Types: Cigarettes Start date: 10/18/1960 Quit date: 10/18/1990 Years since quittin.6 Smokeless tobacco: Never Substance and Sexual Activity Alcohol use: Yes Comment: Rare Drug use: No Sexual activity: Yes Partners: Male Comment: RYANN, Other Topics Concern Not on file Social History Narrative born in [place] in [facility] since 1970 Social Determinants of Health Financial Resource Strain: Not on file Food Insecurity: Not on file Transportation Needs: Not on file Social Connections: Unknown (04/04/2024) Social Connections How often do you feel lonely or isolated from those around you? (Adult - for ages 18 years and over): Not on file Housing Stability: Not on file Review of patient's allergies indicates: Allergen Reactions Moxifloxacin Other reaction(s): "wired", insomnia Pravastatin Other reaction(s): constipation Rosuvastatin Other reaction(s): muscle pain, wierd feeling, fatigue Sulfites Other reaction(s): upper resp symptoms Timolol Other reaction(s): asthma Current Outpatient Medications Medication Sig Dispense Refill Vitamin B Complex-C Oral Capsule Take 1 Capsule by mouth in the morning. KLONOPIN 0.5 MG PO TABS 1 TID brand necessary 270 1 amLODIPine Besylate 10 MG Oral Tablet (Norvasc) Take 10 mg by mouth daily. Calcium Carbonate 1500 (600 Ca) MG Oral Tablet Take 1,500 mg by mouth 2 times a day with morning and evening meals. CoQ10 100 MG Oral Capsule Take by mouth. Fish Oil 1000 MG Oral Capsule Take 1,000 mg by mouth daily. levothyroxine 25 MCG OR Tablet Take 50 mcg by mouth daily first thing in the morning. (at least 30 min prior to breakfast or other meds) Multivitamin Adults Oral Tablet Take by mouth. Esomeprazole Magnesium 40 MG Oral Capsule Delayed Release (NexIUM) Take 40 mg by mouth daily beforebreakfast. Osteo Bi-Flex Adv Double St Oral Tablet Take by mouth. Probiotic Acidophilus BioBeads Oral Capsule Take 1 Cap by mouth three times a day with meals. Vitamin A 2250 MCG (7500 UT) Oral Capsule Take by mouth. Vitamin D3 25 MCG (1000 UT) Oral Tablet (Vitamin D3) Take 1,000 Units by mouth daily. Vitamin E 100 UNIT Oral Capsule Take 100 Units by mouth daily. Zinc 50 MG Oral Tablet Take 50 mg by mouth daily. Estrogens Conjugated 0.625 MG Oral Tablet (Premarin) Take by mouth 0.625 mg in the morning. Diclofenac Sodium 1 % External Gel (Voltaren) Apply topically to affected area . Apply as needed Docusate Sodium 100 MG Oral Capsule (Colace) Take by mouth 100 mg in the morning AND 100 mg before bedtime. Acetaminophen 500 MG Oral Tablet (Tylenol Extra Strength) Take by mouth 500 mg every 6 hours as needed . Tylenol PM Extra Strength 500-25 MG Oral Tablet (diphenhydrAMINE-APAP (sleep)) Take by mouth 1 Tablet 3 times a day as needed for Itching. (Patient not taking: Reported on 05/19/2024) Triamcinolone Acetonide 0.1 % External Cream (Aristocort) Apply topically to affected area 2 times a day . Apply as directed Amoxicillin-Pot Clavulanate 875-125 MG Oral Tablet (Augmentin) TAKE 1 TABLET BY MOUTH EVERY 12 HOURS FOR 10 DAYS (Patient not taking: Reported on 05/19/2024) Repatha 140 MG/ML Subcutaneous Solution Prefilled Syringe INJECT 140MG UNDER THE SKIN EVERY 2 WEEKS Fluticasone Propionate 50 MCG/ACT Nasal Suspension (Flonase) Ibuprofen 200 MG Oral Tablet (Motrin) 400 mg . (Patient not taking: Reported on 05/19/2024) Ketoconazole 2 % External Cream Magnesium 100 MG Oral Capsule Take by mouth 100 mg in the morning. methylPREDNISolone 4 MG Oral Tablet Therapy Pack (Medrol) Take 1 Tablet by mouth. follow package directions Apixaban 5 MG Oral Tablet (Eliquis) Take 0.5 Tablets by mouth in the morning and 0.5 Tablets beforebedtime. 90 Tablet 1 No current facility-administered medications for this visit. REVIEW OF SYSTEMS: See HPI - otherwise negative OBJECTIVE: Filed Vitals: 05/19/24 1506 BP: 146/74 Pulse: 83 Temp: 36.3 C (97.4 F) TempSrc: Tympanic SpO2: 96% Weight: 57.9 kg (127 lb 11.2 oz) Wt Readings from Last 5 Encounters: 05/19/24 57.9 kg (127 lb 11.2 oz) 11/19/23 56.9 kg (125 lb 6.4 oz) 05/19/23 59 kg (130 lb 1.6 oz) 11/17/22 59.3 kg (130 lb 11.2 oz) 08/06/22 58.5 kg (129 lb) PHYSICAL EXAM: General Appearance: Normal - Healthy appearing patient in no acute distress Lungs/Thorax: Normal respiratory effort Neurologic: Normal - Grossly intact LABS per [facility] 05/16/24: WBC 7.47 Hgb 12.2 Platelets 260K PT 10.2 INR 0.9 aPTT 25 seconds Creatinine 0.5 IMPRESSION/PLAN: History of DVT 08/2021: Continues on Eliquis 2.5 mg BID and tolerating well. No bleeding or clotting complications since last OV. She is also on oral estrogen replacement therapy for the last several years, perhaps last 30 to 40 years. She does not want to go off the estrogen replacement therapy. Because of ongoing estrogen replacement therapy, positive D-dimer testing while she was off the anticoagulant Treatment, I would consider for long-term anticoagulant treatment. This will need reevaluated on an annual basis for risks vs benefits. RTC in one year with provider AZAR Hagen documented in this encounter Nursing Notes * Kiley Lomax MED ASSIST - 05/19/2024 3:12 PM EDT Patient identifed by name and birthdate Do you have any concerns about pain management for today's visit? Yes. Patient instructed to discuss pain concerns with provider during the visit today Living Will or Advance Directive for Health Care as noted on the problem list. [facility] is a way you can talk to your provider on line through e-mail. Would you like to sign up? I can activate it for you? ALREADY ACTIVE Filed Vitals: 05/19/24 1506 BP: 146/74 Pulse: 83 Temp: 36.3 C (97.4 F) TempSrc: Tympanic SpO2: 96% Weight: 57.9 kg (127 lb 11.2 oz) Patient was instructed to not get up on the exam table/exam chair until directed and assisted by their provider; patient is to remain seated in the chair/ wheelchair/ exam table/ exam chair for fall prevention and safety reasons. Patient is aware to have assistance to step down off exam table/exam chair with personnel. Patient voiced full comprehension of instructions. documented in this encounter Plan of Treatment Upcoming Encounters Date Type Department Care Team (Late st Contact Info) Description 05/22/2025 2:00 PM EDT Office Visit Hematology/Oncology [facility] [place] [address] [place] [address] Reyna Acevedo CRNP [address] [place] [address] Health Maintenance Due Date Last Done Comments DXA Scan 1945 Depression Screening 1956 Albumin/Creatinine Ratio 1962 Hepatitis C Screening 1963 COVID-19 Vaccine ( season) 2023 01/21/2022, 07/14/2021, 12/22/2020, Additional history exists Influenza Vaccine (FLU shot) (#1) 2024 07/01/2022, 07/07/2021, 08/02/2019, Additional history exists TSH 07/14/2024 07/14/2023, 07/19/2002 DTaP,Tdap,and Td Vaccines (2 - Td or Tdap) 10/08/2024 10/08/2014 GFR 12/08/2024 12/08/2023, 07/19, 06/17/2001 Pneumococcal Vaccine: 65+ Years Completed 06/19/2015, 03/18/2011 Zoster Vaccines Completed 06/13/2018, 01/17, 02/15/2011 HPV (Gardasil) Vaccine Aged Out No lo nger eligible based on patient's age to complete this topic Hepatitis B Vaccine Aged Out No longe r eligible based on patient's age to complete this topic MENINGOCOCCAL (MENACTRA/MENVEO) Aged Out No longer eligible based on patient's age to complete this topic documented as of this encounter Medical Devices Not on filedocumented as of this encounter Visit Diagnoses Diagnosis Chronic deep vein thrombosis (DVT) of tibial vein of left lower extremity (HCC)- Primary documented in this encounter Care Teams Finishing Machine Operator Automatic Relationship Specialty Start Date End Date Dean Watkins MD [address] [facility], [place] [address] PCP - General Family Medicine 11/11/20 documented as of this encounter
--- OUTSIDE RECORDS SUMMARY | 2024-06-05 06:52 | External Medical Summary | Continuity of Care Document ---
Author Name Unknown Organization [facility] [address] [facility] Address [address] [place], [place] [id number] Care Team Providers Care Shearer Operator Name Role Phone Dean Watkins Primary Care Physician [phone] [id number] Date(s): 05/25/24 - 05/25/24 [facility] [address] [facility] [address] [facility], [address] [place] [address] [phone] Discharge Disposition: Home or Self Care Attending Physician: AZAR Garrison Sarah A Allergies, Adverse Reactions, Alerts Substance Criticality Severity Reaction Reaction Severity Status ketoconazole LFTs elevated Act kashif Avelox "wired", insomnia Ac tive sulfites 1 Unknown upper resp symptoms Active Crestor muscle pain, wi erd feeling, fatigue Active timolol 2 Unknown DIFFICULTY BREATHING Active pravastatin constipation Activ e magnesium salicylate TONGUE SWELLS Active sulfa drugs Unknown Active beta blockers 3 OTHER Acti ve Levaquin Active Timoptic Ocudose asthma Act kashif moxifloxacin Not available Act kashif wine SNEEZING, CAUSE S NOT TO FEEL AWARE Active Clams Unable to assess criticality Mild QUESTIONABLE ALLERGY ? N/V, DIARRHEA Active rosuvastatin 4 Unknown Activ e Statins (HMG-CoA reductase inhibitors) CONSTIPATION, BODY ACHES, FATIGUE Active Allergy Not found in Search 5 clams very sick. slow heart rate, trouble breathing Active 1Outside Source Comment: Other reaction(s): upper resp symptoms 2Outside Source Comment: Other reaction(s): asthma 3muscle ache, blurred vision 4Outside Source Comment: Other reaction(s): muscle pain, wierd feeling, fatigue 5muscle relaxants Assessment and Plan Extracted from: Title:Cardiology Office Visit Note Author:AZAR Brandon rd, Sarah A Date:05/25/24 Impression: 1. Holter monitor showing PVCs comprising 28% of beats 2. HLD unable to tolerate any statins or Zetia 3. CAC score 36 - vascular age [age] year old 4. Echo 2023 Normal LVF, EF of 65%, mildly dilated left atrium, ascending aorta measuring 3.4 cm, trace to mild mitral valve regurgitation, moderate tricuspid regurgitation, normalized pulmonary artery pressures echo since 2022 5. Sleep apnea on CPAP 6. PFTs normal 2022 7. Stress test 12/2022 negative for ischemia, showing PVCs throughout activity, a dexter average exercise tolerance for age and gender, 139 % of predicted,achieving 6.4 METs. Ms. Mancuso is stable. She can accomplish 4 METS. She is not having any concerninganginal symptoms. She appears euvolemic. She is a moderate risk for cardiovascular complicationperioperatively. She does not needfurther cardiac testing prior to hersurgery. Her EKG from preop testing was reviewed and is similar to previous. Her blood pressure is controlled. She does not sense her PVCs and is not able to tolerate AV sandro blockers. No cardiomyopathy on last echo. She continues Repatha and is tolerating She will return to the clinic in 4 months. Immunizations Given and Recorded Vaccine Date Status Refusal Reason influenza virus vaccine, inactivated 07/07/23 Give n influenza virus vaccine, inactivated 07/01/22 Give n influenza virus vaccine, inactivated 1 07/07/21 Re corded influenza virus vaccine, inactivated 08/02/19 Give n influenza virus vaccine, inactivated 2 07/06/19 Re corded influenza virus vaccine, inactivated 07/21/18 Give n influenza virus vaccine, inactivated 07/28/17 Give n influenza virus vaccine, inactivated 07/29/16 Give n influenza virus vaccine, inactivated 06/19/15 Give n influenza virus vaccine, inactivated 07/27/14 Give n SARS-CoV-2 mRNA (tozinameran 5y-11y) 01/21/22 Malcolm rded SARS-CoV-2 (COVID-19) mRNA BNT-162b2 vax 07/14/21 Recorded SARS-CoV-2 (COVID-19) mRNA BNT-162b2 vax 3 12/22/20 Recorded SARS-CoV-2 (COVID-19) mRNA BNT-162b2 vax 4 12/16/20 Recorded SARS-CoV-2 (COVID-19) mRNA BNT-162b2 vax 5 11/24/20 Recorded SARS-CoV-2 (COVID-19) mRNA BNT-162b2 vax 6 11/18/20 Recorded zoster vaccine, inactivated 06/13/18 Given zoster vaccine, inactivated 02/08/18 Given pneumococcal 13-valent vaccine 06/19/15 Given tetanus/diphtheria/pertuss, acel (Tdap) 7 10/08/14 Given pneumococcal 23-valent vaccine 03/18/11 Recorded pneumococcal 23-valent vaccine 8 03/18/11 Recorded zoster vaccine live 02/15/11 Recorded zoster vaccine live 9 02/15/11 Recorded 1Result Comment: [facility] 2Result Comment: [07/06/2019 Uncharted] Charted in error. 3Result Comment: 2021-07-21: Historical information-source unspecified 4Result Comment: Duplicate 5Result Comment: 2021-07-21: Historical information-source unspecified 6Result Comment: Duplicate 7Early/Late Reason: Other : Late charting 8Result Comment: 2019-02-27: Historical information-source unspecified 9Result Comment: 2019-02-27: Historical information-source unspecified Medications amLODIPine 10 mg oral tablet Start: 05/12/24 1:51:00 PM EDT, 1 tab, PO, Daily, Disp# 90 tab, Refills: 3, Pharmacy: [facility]/pharmacy #[id number] Start Date: 05/12/24 Status: Ordered Caltrate Start: 08/22/20 10:31:00 AM EST, PO, Daily Start Date: 08/22/20 Status: Ordered Centrum Adults Start: 07/14/23 12:13:00 PM EDT, 1 tab, PO, Daily Start Date: 07/14/23 Status: Ordered ciprofloxacin 0.3% ophthalmic solution Start: 03/20/24 3:53:00 PM EDT, 5 mL, 0 Refill(s), USE ONE DROP IN AFFECTED EYE 4 TIMES DAILY FOR 5-7DAYS NEEDED Start Date: 03/20/24 Status: Ordered Co Q-10 Start: 03/23/19 11:18:00 AM EDT Start Date: 03/23/19 Status: Ordered Colace 100 mg oral capsule Start: 11/23/19 4:45:00 PM EST, 1 cap, PO, tid, Disp# 30 cap, Pharmacy: [facility]/pharmacy #[id number] Start Date: 11/23/19 Status: Ordered diclofenac 1% topical gel Start: 05/01/22 3:39:00 PM EDT, See Instructions, Disp# 500 g, Refills: 10, APPLY 4 GRAMS TOPICALLY FOUR TIMES A DAY NEEDED FOR PAIN, Pharmacy: [facility] Start Date: 05/01/22 Status: Ordered Eliquis 2.5 mg oral tablet Start: 08/07/22 10:10:00 AM EDT, 1 tab, PO, bid Start Date: 08/07/22 Status: Ordered esomeprazole 40 mg oral delayed release capsule Start: 03/20/24 3:53:00 PM EDT, 90 cap, 0 Refill(s) Start Date: 03/20/24 Status: Ordered Fish Oil oral capsule Start: 02/08/19 4:06:00 PM EDT, PO, Daily Start Date: 02/08/19 Status: Ordered fluticasone 50 mcg/inh nasal spray Start: 11/15/23 2:24:00 PM EST, 2 spray, intranasal, Daily, Disp# 48 g, Refills: 3, Pharmacy: [facility] Start Date: 11/15/23 Status: Ordered Forteo Start: 02/28/24 4:27:00 PM EDT, Teriparatide (FORTEO) was recommended by an Senior Program Manager, Dr. Hayde Mosley, from [facility]. I began this medication on February 25, 2024. Start Date: 02/28/24 Status: Ordered ketoconazole 2% topical cream Start: 06/02/23 6:08:00 PM EDT, See Instructions, Disp# 60 g, Refills: 12, USE 1 APPLICATION TOPICALLY TWICE A DAY. APPLY TO RED AREAS IN SKIN FOLDS TWICE A DAY NEEDED, Pharmacy: [facility] Start Date: 06/02/23 Status: Ordered KlonoPIN 0.5 mg oral tablet Start: 05/28/23 2:09:00 PM EDT, 1 tab, PO, qid, Disp# 360 tab, Refills: 0, Note to Pharmacy: Needs to be Klonopin brand necessary, Brand Medically Necessary, Pharmacy: [facility] Start Date: 05/28/23 Status: Ordered losartan 25 mg oral tablet Start: 02/14/24 9:10:00 AM EDT, 1 tab, PO, Daily, Disp# 90 tab, Refills: 3, Pharmacy: [facility]/pharmacy #[id number] Start Date: 02/14/24 Status: Ordered magnesium aspartate Start: 07/14/23 12:12:00 PM EDT, 1 tab, PO, Daily Start Date: 07/14/23 Status: Ordered optive ophthalmic solution Start: 07/14/23 12:12:00 PM EDT, 1 drop, both eyes, bid, PRN: dry eyes Start Date: 07/14/23 Status: Ordered Osteo Bi-Flex Triple Strength oral tablet Start: 07/05/13 3:39:00 PM EDT, See Instructions, One tab once daily Start Date: 07/05/13 Status: Ordered Premarin 0.625 mg oral tablet Start: 12/27/23 1:16:00 PM EDT, 1 tab, PO, Daily, Disp# 90 tab, Refills: 3, Pharmacy: [facility] Start Date: 12/27/23 Status: Ordered Probiotic Formula Start: 02/08/18 10:16:00 AM EDT, 1 cap, PO, Daily Start Date: 02/08/18 Status: Ordered Repatha Prefilled Syringe 140 mg/mL subcutaneous solution Start: 04/11/24 9:04:00 AM EDT, 140 mg =, subQ, [id number], Disp# 6 unknown unit, Refills: 3, Pharmacy:[id number] Start Date: 04/11/24 Status: Ordered Synthroid 50 mcg (0.05 mg) oral tablet Start: 05/05/24 1:25:00 PM EDT, 90 tab, 0 Refill(s) Start Date: 05/05/24 Status: Ordered teriparatide 600 mcg/2.4 mL subcutaneous solution Start: 02/09/24 8:00:00 PM EDT, 20.0 ug, subQ, 11 Refill(s), Inject 0.08 mL (20 micrograms total) into the skin daily Start Date: 02/09/24 Status: Ordered teriparatide 600 mcg/2.4 mL subcutaneous solution Start: 03/20/24 3:54:00 PM EDT, 2 unknown unit, 0 Refill(s) Start Date: 03/20/24 Status: Ordered triamcinolone 0.1% topical cream Start: 08/24/23 7:56:00 AM EST, See Instructions, Disp# 180 g, Refills: 3, APPLY TO THE AFFECTED AREAS EVERY DAY UNTIL CLEAR THEN USE NEEDED, [facility]acy: [facility] Start Date: 08/24/23 Status: Ordered unlisted medication Start: 03/20/24 3:53:00 PM EDT, 90 unknown unit, 0 Refill(s) Start Date: 03/20/24 Status: Ordered vitamin A Start: 03/04/23 12:14:00 PM EDT Start Date: 03/04/23 Status: Ordered Vitamin B Complex Start: 02/08/18 10:16:00 AM EDT, See Instructions, 1 tab PO daily Start Date: 02/08/18 Status: Ordered Vitamin D3 1000 intl units oral tablet Start: 03/15/13 1:56:00 PM EDT, 1 tab, PO, Daily Start Date: 03/15/13 Status: Ordered vitamin E Start: 08/22/20 10:31:00 AM EST, PO, Daily Start Date: 08/22/20 Status: Ordered Zinc Start: 08/22/20 10:32:00 AM EST, PO, Daily Start Date: 08/22/20 Status: Ordered Mental Status 05/25/24 Barriers to Learning one year None evide nt Mandatory Health Literacy Documentation Yes Health Literacy Communication Barriers N ever Primary Language Mohawk Problem List Condition Confirmation Course Effective Dates Status H ealth Status Informant ANXIETY Confirmed Active Back pain Confirmed Active GERD Confirmed 03/15/13 Active Glaucoma Confirmed Active Hernia, hiatal 1 Confirmed Active History of DVT of lower extremity Confirmed Active History of skin cancer Confirmed Active History of skin cancer 2 Confirmed Active Hyperlipidemia Confirmed Active Hypertension Confirmed Active Hypothyroidism Confirmed Active Inflamed seborrheic keratosis Confirmed Active Sacroiliitis Confirmed Active Intertrigo Confirmed Active Right lumbar radiculopathy Confirmed Active Lung nodule 3, 4, 5, 6, 7 Confirmed Active PVC (premature ventricular contraction) Confirmed Active Weakness of left leg Confirmed Active Nausea Confirmed Active MATHEW on CPAP 8, 9 Confirmed 08/01/10 Active Osteoporosis Confirmed Active Post herpetic neuralgia Confirmed Active Pulmonary emphysema 10 Confirmed Active Pulmonary hypertension (disorder) Confirmed Active Radiculitis Confirmed Active SCOLIOSIS 11 Confirmed Active Solar purpura Confirmed 07/22/[address] in 05/2020: 06/13/2020 14:40 EDT - TONIA Murray Brenda 1. Stable subcentimeter pulmonary nodules. No further f/u is indicated. 2. Stable borderline enlarged AP window nodes and lymph node the level the right cardiophrenic angle 3. Pulmonary emphysema. 4. Moderate hiatal hernia with a paraesophageal componet. There is a fluid filled esophagus. 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 Stable subcentimeter pulmonary nodules. No further f/u is indicated. 2. Stable borderline enlarged AP window nodes and lymph node the level the right cardiophrenic angle 3. Pulmonary emphysema. 4. Moderate hiatal hernia with a paraesophageal componet. There is a fluid filled esophagus. 09:30 - TONIA Schafer Kimbra J Impression: No acute intrathoracic abnormality identified. Unchanged size and appearance of the left-sided solid pulmonary nodules measuring up to 4 mm. No new or suspicious pulmonary nodules are identified. Nonspecific mild AP window adenopathy Emphysema Moderate sized hiatal hernia 5pt smoked for 30 years and quited in 1992. pt prefer to check CT again in 1 year. 11:27 - TONIA Schafer Kimbra J Impression: 1. A 5 mm nodular density within the right lung apex appears to be due to a confluence of normal pulmonary vessels. therefore, no additional follow-up required. 2. Stable subpleural nodules within the left lung with the largest measuring 4 mm. Please refer to the chart below for recommended followup. 3. Mild emphysema. 4. Stable single mildly enlarged AP window lymph node. moderate hiatus hernia, unchanged. 7chest CTA in 02/2017: No PE, 5mmright apical lung nodule. 8sees Dr. Paris 9on CPAP 10See outside Rad/Study 07/16/20 06/13/20 CT of Chest IMPRESSION: Pulmonary Emphysema 11sees [facility] Procedures Procedure Date Related Diagnosis Body Site Status Colonoscopy 1, 2, 3 02/24/24 Compl eted EGD - esophagogastroduodenoscopy 4 02/24/24 Completed Mammogram 5 07/08/23 Completed Bone density scan 6 02/19/23 Compl eted Injection 7 12/16/22 Completed Injection 8 09/16/22 Completed Mammogram 9 07/07/[address] of head 10 06/12/22 Completed Injection 11 04/08/22 Completed Ultrasound scan of thyroid 12 12/31/21 Completed INJECT SACROILIAC JOINT left 12/15/21 Completed Injection of sacroiliac joint - Left 08/07/21 Completed Otoscopy 13 07/28/21 Completed Mammogram - screening 14 07/03/21 Completed Ultrasonography (US) of thyr oid and parathyroid 15 07/01/21 Completed Ultrasound 16 06/30/21 Completed Bursectomy 05/2021 Completed Injection of steroid 17 05/05/21 C ompleted Shave biopsy and cauterization of skin 03/25/21 Completed Injection of hip joint- left sacroiliac joint 02/17/21 Completed Injection of hip joint 18 07/24/20 Completed Stenosis of lateral recess o f lumbar spine 19 07/10/[address] of chest 20 06/13/20 Completed Mammogram - screening 21 05/08/20 Completed Injection into joint 22 03/28/20 C ompleted Injection 23 09/01/19 Completed Injection of sacroiliac joint 08/31/19 Completed Full sleep study 24 06/02/19 Compl eted Injection of sacroiliac joint 25 04/05/19 Completed Injection 26 12/05/18 Completed Injection of joint using flu oroscopic guidance of Left sacroilitis joint 12/05/18 Completed Ultrasound scan of thyroid 27 06/29/18 Completed X-ray 28 05/20/18 Completed Injection into joint 29 04/11/18 C ompleted Eye surgery- Left 01/25/18 Complet ed Colonoscopy 30 01/21/18 Completed Esophagogastroduodenoscopy 31 01/21/18 Completed Mammogram 32 01/21/18 Completed Injection of joint using flu oroscopic guidance Left sacroiliac joint 08/25/[address] 33 08/12/17 Completed Ultrasound scan of thyroid 34 04/27/17 Completed Echocardiogram stress exercise 35 03/30/17 Completed Venous doppler ultrasonograp hy Left lower extremity 36 03/05/17 Completed Bone density scan 37 02/11/17 Comp leted Mammogram - screening 38 01/13/17 Completed Lumbar Epidural steroid inje ction interlaminar 12/16/16 Completed Greater Trochanteric Bursa i njection under US 11/19/16 Completed Pain management 39 05/19/16 Comple carson Procedure 40 04/15/16 Completed Mammogram 41 12/30/15 Completed Arthroplasty 42 11/07/15 Completed shoulder surgery 11/07/15 Complete d CXR - Chest X-ray 43 10/28/15 Comp leted MRI-Right Shoulder 44 10/23/15 Com pleted Thoracic radio-requency abla tion medial branch intramuscule injection of Toradol 08/20/15 Completed Epidural steroid injection 05/21/15 Completed X-ray of spine 45 05/21/15 Complet ed Epidural steroid injection 04/18/15 Completed Lumbar spine 46 03/27/15 Completed Arthroscopy 47 01/17/15 Completed CXR - Chest X-ray 48 01/02/15 Comp leted Mammography 49 12/17/14 Completed Hysterectomy and unilateral salpingo-oophorectomy sample 50, 51 05/07/14 Completed Endoscopic biopsy 03/13/14 Complet ed Right Breast 12/21/13 Completed Mammogram abnormal 52 12/13/13 Com pleted Shave biopsy and cauterization of skin 12/12/13 Completed Colonoscopy 53 01/19/13 Completed Chest X-ray 54 44 Completed Bone density scan 55 Comp leted bunion surgery Completed carpal tunnel surgery Com pleted cataract removal Complete d section Complete d Injection 56 Completed Injection into joint Left SI 57 Completed Laser 58 Completed multiple eye surgeries for glaucoma Completed Procedure 59 Completed Procedure 60, 61 Complete d surgical removal of ovary Completed 1- Three 4 to 6 mm polyps in the transverse colon and in the ascending colon, removed with a cold snare. Resected and retrieved. - The examination was otherwise normal. 2A) Ascending colon polyp, polypectomy: Sessile serrated polyp. B) Ascending colon polyp, polypectomy: Tubular adenoma. C) Transverse colon polyp, polypectomy: Tubular adenoma. 3Repeat colonoscopy in if you become symptomatic only 4- Normal esophagus. - Large hiatal hernia. - Normal examined duodenum. - No specimens collected. 5Impression: There is no mammographic evidence of malignancy. A 1 year screening mammogram is recommended 6T Score -2.3 10 Year Probability of Fracture: Major Osteoporotic 42.4% Hip 27.9% Population [place] () Based on DualFemur (Right) Neck BMD 7Epidural 8Left SI joint injections 9there is no mammographic evidence of malignancy. 101. No acute intracranial findings 2. No acute calvarial fracture 11left sacroiliac joint injection uner fluorocopic guidance 12No significant change in several left lobe thyroid nodules. 13Right - Normal/minimal until 3k Hz, sloping from a Mild to Moderately-severe HF SNHL. Left - Mild sloping to Moderately-severe HF SNHL. 14There is no mammographic evidence of malignancy. A 1 year screening mammogram is recommended. The patient will receive written notification of the results. 16:37 EDT - TONIA Saini, Monika Ultrasound Thyroid Impression: 1. Atrophic thyroid gland which is stable since prior. 2. Multiple nodules within left thyroid lobe. Slightly hypoechoic heterogeneous nodcule with ill-defined borders within mid pole of thyroid gland was not measured during prior study, unclear if new or stable, midly suspicious and might require follow-up evaluation in 6 months. Also stable peripherally calcified nodule within left thyroid lobe could be reevaluated on follow-up ultrasound. 16Ultrasound Thyroid Impression: 1. Atrophic thyroid gland which is stable since prior. 2. Multiple nodules within left thyroid lobe. Slightly hypoechoic heterogeneous nodcule with ill-defined borders within mid pole of thyroid gland was not measured during prior study, unclear if new or stable, midly suspicious and might require follow-up evaluation in 6 months. Also stable peripherally calcified nodule within left thyroid lobe could be reevaluated on follow-up ultrasound. 17Lumbar stenosis with left greater than right S1 radiculopathy 18Greater trochanter injection (kenalog) left hip 19lateral stenosis [id number] with left L5 radiculopathy 201. Stable subcentimeter pulmonary nodules. No further f/u is indicated. 2. Stable borderline enlarged AP window nodes and lymph node the level the right cardiophrenic angle 3. Pulmonary emphysema. 4. Moderate hiatal hernia with a paraesophageal componet. There is a fluid filled esophagus. 21There is no mammographic evidence of malignancy. A 1 year screening mammogram is recommended. The patient will receive written notification of the results. 22Left sacroiliac joint injection under fluoroscopic guidance. 23SI joint injection 24Severe Obstructive Sleep Apnea 25Dr. Guido 26Left sacroiliac joint injection. 27Multinodular left thyroid lobe essentially unchanged from the prior study given differences in technique. 28Scoliosis AP lateral Thoracolumbar levoscoliosi of 30 degrees 29Left sacroiliac joint injection under fluoroscopic guidance. 30colo to TI, mild sigmoid diverticulosis, random R colon and sigmod bx done. 31EGD 6 cm HH, 2nd duod normal bx 32There is no mammographic evidence of malignancy. A 1 yr screening mammogram is recommended. The pt will receive written notifications of the results. 33Impression: 1. A 5 mm nodular density within the right lung apex appears to be due to a confluence of normal pulmonary vessels. therefore, no additional follow-up required. 2. Stable subpleural nodules within the left lung with the largest measuring 4 mm. Please refer to the chart below for recommended followup. 3. Mild emphysema. 4. Stable single mildly enlarged AP window lymph node. moderate hiatus hernia, unchanged. 341. The thyroid gland is heterogeneous in echotexture. Correlation with serum thyroid function studies is recommended. 2. there are 3 nodules in the left lobe of the thyroid gland measuring up to 1.0 cm. These do not meet sonographic criteria for fine needle aspiration. Precautionary f/u examinatino in one years timeis recommended. 35Negative stress EKG for ischemia at 92% MPHR. Negative stress echocardiogram for ischemia at 92% MPHR. Well above average exercise tolerance for age and gender, 191% of predicted, achieving 10.1 METs. A complete report is available with the images in centricity and is also available in powerchart. 36Impression: negative study 37T-score -1.4 38There is no mammographic evidence of malignancy. A 1 year screening mammogram is recommended. The patient will receive written notification of the results. 39Radiofrequency ablation left T10, T11 & T12 medial branchs. 40Thoracic medial branch block Levels; Left T10, T11 and T12 local anesthesia tolerated procedure well 41Cat 2- Benign 1 year screening mammo is recommended. 42right shoulder dx arthroscopy with extensive debridement including scar tissue removal and a mediumsize traumatic rotator cuff repair. 43No active disease in the chest 44Significantly degraded examination as above Tendinopathy with a large full-thickness tear of the supraspinatous tendon with associated musculotendinous retraction Extensive degenerative tearing of the glenoid labrum Tendinopathy with mild degenerative tearing of the infraspinatus tendon There is evidence of previous shoulder surgery. Correlation with the pt's operative hx will be required Arthritic change as above Tendonopathy and at least partial-thickness tearing of the long head of the biceps tendon. The tendon is not well visualized on this examination 451) Spinal stenosis 2) Advanced lumbosacral spondylosis 46Generalized degenerative change throughout the entire lumbar region with evidence for a mild centaldisc herniation L5-S1 47with limited debridement, acromioplasty, small bursal sided rotator cuff repair and open subpectoral biceps tenodesis 48No significant change compared to prior studies. No process. Moderate hiatus hernia. 49There is no mammograghic evidence of malignancy 50right ovary removed. 51for excessive bleeding 522 0.4 cm nodules [id number]: normal 54No significant change compared to the prior study. No acute process. Large hiatal hernia again noted. 55Major osteoporotic based on dual femur right neck. 56both thumbs 57MN - Dr. Lora - left sacroiliac joint injection under fluoroscopic guidance. 58Left eye for glaucoma at [facility] 59Cortisone inj L. hip, & right shoulder & lidocaine inj in back the week of Dec 03, 2014. 60Right Shoulder and lower-mid back. -Steroid injection Vital Signs Most recent to oldest [Reference Range]: 1 Patient Weight 58 kg (05/25/24 11:06 AM) Heart Rate 87 bpm (05/25/24 11:06 AM) Respiratory Rate 17 br/min (05/25/24 11:06 AM) Blood Pressure 132/72mmHg (05/25/24 11:06 AM) BP Location # 1 Left Arm (05/25/24 11:06 AM) Social History Social History Type Response Tobacco Former smoker 1 Smoking Status Former Smoker, quit > 1 yr Sex Female Sex Representation Female (finding) 1smoked > 30 years, quited in 1992 Cardiology Outpatient Note * AZAR Garrison Sarah A: PERFORM Event Display: Cardiology Outpt Note Authored Date: Primary Care Provider MD Watkins Juan Chief Complaint surgery clearance History of Present Illness Ms. Mancuso presents for follow up of her frequent PVCs, htn and dyslipidemia. She is having a lot of back pain so she isn't exercising.She feels about the same as she did whenI saw her 4 months ago. No sob or chest pain. She can ascend a flight of stairs without symptoms. Her phone shows 4-20 METS in a day. She feels she is stable from 4 months ago when I last saw her Review of Systems All other systems reviewed and negative except as discussed in the HPI Physical Exam Vitals & Measurements HR:87(Monitored) RR:17 BP:132/72 SpO2:97% WT:58kg WT:58.000kg(Dosing) Physical Examination General: Alert and oriented, No acute distress. Respiratory: Lungs are clear to auscultation, Respirations are non-labored. Cardiovascular: Normal rate, Regular rhythm, No murmur, No edema. Integumentary: Warm, Dry, [place] Neurologic: Alert, Oriented. Cognition and Speech: Speech clear and coherent. Psychiatric: Cooperative, Appropriate mood & affect. Assessment/Plan Impression: 1. Holter monitor showing PVCs comprising 28% of beats 2. HLD unable to tolerate any statins or Zetia 3. CAC score 36 - vascular age [age] year old 4. Echo 2023 Normal LVF, EF of 65%, mildly dilated left atrium, ascending aorta measuring 3.4 cm, trace to mild mitral valve regurgitation, moderate tricuspid regurgitation, normalized pulmonary artery pressures echo since 2022 5. Sleep apnea on CPAP 6. PFTs normal 2022 7. Stress test 12/2022 negative for ischemia, showing PVCs throughout activity, above average exercise tolerance for age and gender, 139 % of predicted,achieving 6.4 METs. Ms. Mancuso is stable. She can accomplish 4 METS. She is not having any concerninganginal symptoms. She appears euvolemic. She is a moderate risk for cardiovascular complicationperioperatively. She does not needfurther cardiac testing prior to hersurgery. Her EKG from preop testing was reviewed and is similar to previous. Her blood pressure is controlled. She does not sense her PVCs and is not able to tolerate AV sandro blockers. No cardiomyopathy on last echo. She continues Repatha and is tolerating She will return to the clinic in 4 months. Problem List/Past Medical History Ongoing ANXIETY Back pain GERD Glaucoma Hernia, hiatal History of DVT of lower extremity History of skin cancer History of skin cancer Hyperlipidemia Hypertension Hypothyroidism Inflamed seborrheic keratosis Intertrigo Lung nodule Nausea MATHEW on CPAP Osteoporosis Post herpetic neuralgia Pulmonary emphysema Pulmonary hypertension (disorder) PVC (premature ventricular contraction) Radiculitis Right lumbar radiculopathy Sacroiliitis SCOLIOSIS Solar purpura Weakness of left leg Resolved Abnormal platelet function Bursitis Bursitis, trochanteric Cerumen impaction Colonoscopy Gastroenteritis Low back pain Muscle pain, myofacial Shoulder fracture Thyroid nodule TMJ (dislocation of temporomandibular joint) Tobacco user Viral URI Procedure/Surgical History Colonoscopy| Service Date: 02/24/2024EGD - esophagogastroduodenoscopy| Service Date: 02/24/2024Mammogram| Service Date: 07/08/2023one density scan| Service Date: 02/19/2023Injection| Service Date: 12/16/2022Injection| Service Date: 09/16/2022Mammogram| Service Date: 07/07/2022T of head| Service Date: 06/12/2022Injection| Service Date: 04/08/2022Ultrasound scan of thyroid| Service Date: 12/31/2021INJECT SACROILIAC JOINT left| Service Date: 12/15/2021Injection of sacroiliac joint - Left| Service Date: 08/07/2021Otoscopy| Service Date: 07/28/2021Mammogr am - screening| Service Date: 07/03/2021Ultrasonography (US) of thyroid and parathyroid| ServiceDate: 07/01/2021Ultrasound| Service Date: 06/30/2021ursectomy| Service Date: 05/2021Injection of steroid| Service Date: 05/05/2021have biopsy and cauterization of skin| Service Date: 05/2021Injection of hip joint- left sacroiliac joint| Service Date: 02/17/2021Injection of hip joint| Service Date: 07/24/2020Stenosis of lateral recess of lumbar spine| Service Date: 07/10/2020CT of chest| Service Date: 06/13/2020Mammogram - screening| Service Date: 05/08/2020Injection into joint| Service Date: 03/28/2020Injection| Service Date: 09/01/2019Injection of sacroiliac joint| Service Date: 08/31/2019Full sleep study| Service Date: 06/02/2019Injection of sacroiliac joint| Service Date: 04/05/2019Injection of joint using fluoroscopic guidance of Left s acroilitis joint| Service Date: 12/05/2018Injection| Service Date: 12/05/2018Ultrasound scan of thyroid| Service Date: 06/29/2018X-ray| Service Date: 05/20/2018Injection into joint| Service Date: 04/11/2018Eye surgery- Left| Service Date: 01/25/2018Colonoscopy| Service Date: 2017Esophagogastroduodenoscopy| Service Date: 01/21/2018Mammogram| Service Date: 01/21/2018Injection of joint using fluoroscopic guidance Left sacroiliac joint| Service Date: 08/25/2017Chest CT| Service Date: 08/12/2017Ultrasound scan of thyroid| Service Date: 04/27/2017Echocardiog jennifer stress exercise| Service Date: 03/30/2017Venous doppler ultrasonography Left lower extremity| Service Date: 03/05/2017Bone density scan| Service Date: 02/11/2017Mammogram - screening| Service Date: 01/13/2017Lumbar Epidural steroid injection interlaminar| Service Date: 12/16/2016Greater Trochanteric Bursa injection under US| Service Date: 11/19/2016Pain management| Service Date: 05/19/2016Procedure| Service Date: 04/15/2016Mammogram| Service Date: 12/30/2015shoulder surgery| Service Date: 11/07/2015Arthroplasty| Service Date: 11/07/2015CXR - Chest X-ray| Service Date: 10/28/2015MRI-Right Shoulder| Service Date: 10/23/2015Thoracic radio-requency ablation medial branch intramuscule injection of Toradol| Service Date: 08/20/2015X-ray of spine| Service Date: 05/21/2015Epidural steroid injection| Service Date: 05/21/2015Epidural steroid injection| Service Date: 04/18/2015Lumbar spine| Service Date: 03/27/2015rthroscopy| Service Date: 01/17/2015CXR - Chest X-ray| Service Date: 01/02/2015Mammography| Service Date: 12/17/2014Hysterectomy and unilateral salpingo-oophorectomy sample| Service Date: 05/07/2014Endoscopic biopsy| Service Date: 03/13/2014Right Breast| Service Date: 12/21/2013Mammogram abnormal| Service Date: 12/13/2013Shave biopsy and cauterization of skin| Service Date: 12/12/2013Colonoscopy|Service Date: 01/19/2013Chest X-ray| Service Date: 5carpal tunnel surgeryCesareansectionbunion surgerycataract removalmultiple eye surgeries for glaucomasurgical removal of ovaryProcedureBone density scanProcedureLaserInjection into joint Left SIInjection Medications amLODIPine(amLODIPine 10 mg oral tablet), 10 mg= 1 tab, PO, Daily, 3 refills apixaban(Eliquis 2.5 mg oral tablet), 2.5 mg= 1 tab, PO, bid bifidobacterium-lactobacillus(Probiotic Formula), 1 cap, PO, Daily calcium carbonate(Caltrate), PO, Daily cholecalciferol(Vitamin D3 1000 intl units oral tablet), 1000 Int_Unit= 1 tab, PO, Daily chondroitin-glucosamine(Osteo Bi-Flex Triple Strength oral tablet), See Instructions ciprofloxacin ophthalmic(ciprofloxacin 0.3% ophthalmic solution) clonazePAM(KlonoPIN 0.5 mg oral tablet), 0.5 mg= 1 tab, PO, qid conjugated estrogens(Premarin 0.625 mg oral tablet), 1 tab, PO, Daily diclofenac topical(diclofenac 1% topical gel), See Instructions docusate(Colace 100 mg oral capsule), 100 mg= 1 cap, PO, tid esomeprazole(esomeprazole 40 mg oral delayed release capsule) evolocumab(Repatha Prefilled Syringe 140 mg/mL subcutaneous solution), 140 mg, subQ, [id number] fluticasone nasal(fluticasone 50 mcg/inh nasal spray), 2 spray, intranasal, Daily ketoconazole topical(ketoconazole 2% topical cream), See Instructions levothyroxine(Synthroid 50 mcg (0.05 mg) oral tablet) losartan(losartan 25 mg oral tablet), 25 mg= 1 tab, PO, Daily, 3 refills magnesium aspartate, 1 tab, PO, Daily multivitamin(Vitamin B Complex), See Instructions multivitamin with minerals(Centrum Adults), 1 tab, PO, Daily ocular lubricant(optive ophthalmic solution), 1 drop, both eyes, bid, PRN omega-3 polyunsaturated fatty acids(Fish Oil oral capsule), PO, Daily teriparatide(teriparatide 600 mcg/2.4 mL subcutaneous solution), 20.0 ug, subQ teriparatide(teriparatide 600 mcg/2.4 mL subcutaneous solution) teriparatide(Forteo) triamcinolone topical(triamcinolone 0.1% topical cream), See Instructions, 3 refills ubiquinone(Co Q-10) unlisted medication vitamin A vitamin E, PO, Daily zinc sulfate(Zinc), PO, Daily Allergies Clams (Mild)QUESTIONABLE ALLERGY ? N/V, DIARRHEA Allergy Not found in Searchclams very sick., slow heart rate, trouble breathing Avelox"wired", insomnia Crestormuscle pain, wierd feeling, fatigue Levaquin Statins (HMG-CoA reductase inhibitors)CONSTIPATION, BODY ACHES, FATIGUE Timoptic Ocudoseasthma beta blockersOTHER ketoconazoleLFTs elevated magnesium salicylateTONGUE SWELLS moxifloxacinNot available pravastatinconstipation rosuvastatinUnknown sulfa drugsUnknown sulfitesUnknown, upper resp symptoms timololUnknown, DIFFICULTY BREATHING wineSNEEZING, CAUSES NOT TO FEEL AWARE Social History Smoking Status Former Smoker, quit > 1 yr Alcohol - Low Risk Exercise - Regular exercise Exercise type:Aerobics, Yoga Tobacco - Denies Tobacco Use Use:Former smoker - Comments: smoked > 30 years, quited in 1992 Family History Anxiety: Mother and MGM. Cancer: MGF, PGF and PGM. GLAUCOMA: Father. Heart disease: Mother, Father and MGM. Pulmonary fibrosis..: Mother. Rheumatoid Arthritis: Sister. Stroke: Mother. Health Status Family Member(s) Electronic Signature on File CC: Dean Watkins MD [address] [place] [id number] Electronically Reviewed/Signed by: AZAR Simmons Author Signature Dt/Tm:05/25/2024 11:59 AM [facility] [place] SAG Patient Care team information Care Team Personnel Name: AZAR Blas Tara Position: Nurse Pract - Family Med Member Role: Lifetime Relationship Address: [address] [place] [address] Name: MD Salo, Adri Jonas Position: Physician - Gastro Member Role: Lifetime Relationship Address: [address] [place] [address] [place] Name: MD Watkins Juan Position: Physician - Family Med Member Role: Primary Care Provider Address: [address] [place] [address] Care Team Related Persons Name: DAVI MANCUSO
--- OUTSIDE RECORDS SUMMARY | 2024-06-05 06:52 | External Medical Summary | Continuity of Care Document ---
Author Name Unknown Organization [place] [id number] [facility] Address [address], [place] [id number] Care Team Providers Care Other Sports Official Name Role Phone Dean Watkins Primary Care Physician [phone] [id number] Date(s): 05/25/24 - 05/25/24 [facility] [address] [facility] [place] [address] [place] [phone] Encounter Diagnosis Preop examination(Discharge Diagnosis) - 05/26/24 Discharge Disposition: Home or Self Care Attending Physician: AZAR Mccormick Danielle B Referring Physician: AZAR Mccormick Danielle B Allergies, Adverse Reactions, Alerts Substance Criticality Severity Reaction Reaction Severity Status ketoconazole LFTs elevated Act kashif Avelox "wired", insomnia Ac tive sulfites 1 Unknown upper resp symptoms Active timolol 2 Unknown DIFFICULTY BREATHING Active pravastatin constipation Activ e magnesium salicylate TONGUE SWELLS Active sulfa drugs Unknown Active beta blockers 3 OTHER Acti ve Levaquin Active Timoptic Ocudose asthma Act kashif moxifloxacin Not available Act kashif wine SNEEZING, CAUSE S NOT TO FEEL AWARE Active Clams Unable to assess criticality Mild QUESTIONABLE ALLERGY ? N/V, DIARRHEA Active Crestor muscle pain, wi erd feeling, fatigue Active rosuvastatin 4 Unknown Activ e Statins [...] 5muscle relaxants Assessment and Plan Extracted from: Title:Office Visit Note Author:AZAR Mccormick Dan ielle B Date:05/25/24 1.Preop examination Patient classified as low risk per Sammy Criteria. Medications and chronic health conditions optimized for surgery. Patient has already stopped fish oil and was advised by cardiology to stop Eliquis 3 days prior to procedure. -Patient verbalizes understanding regarding plan of care and all questions answered. Immunizations Given and Recorded Vaccine Date Status [...] vaccine, inactivated 07/27/14 Give n SARS-CoV-2 mRNA (tomickeynameran 5y-11y) 01/21/22 Malcolm rded SARS-CoV-2 (COVID-19) mRNA [...] vaccine live 9 02/15/11 Recorded 1Result Comment[facility]: [07/06/2019 Uncharted] Charted in error. [...] Daily, Disp# 90 tab, Refills: 3, Pharmacy: [facility]/pharmacy #[id number] Start Date: 05/12/24 Status: Ordered [...] cap, PO, tid, Disp# 30 cap, Pharmacy: [facility]/pharmacy #[id number] Start Date: 11/23/19 Status: Ordered diclofenac 1% topical gel Start: 05/01/22 3:39:00 PM EDT, See Instructions, Disp# 500 g, Refills: 10, APPLY 4 GRAMS TOPICALLY FOUR TIMES A DAY NEEDED FOR PAIN, Pharmacy: [facility] Start Date: 05/01/22 Status: Ordered [...] Daily, Disp# 48 g, Refills: 3, Pharmacy: [facility] Start Date: 11/15/23 Status: Ordered Forteo Start: 02/28/24 4:27:00 PM EDT, Teriparatide (FORTEO) was recommended by an Travel Insurance Agent, Dr. Hayde Mosley, from [facility]. I began this medication on February 25, 2024. Start Date: 02/28/24 Status: Ordered ketoconazole 2% topical cream Start: 06/02/23 6:08:00 PM EDT, See Instructions, Disp# 60 g, Refills: 12, USE 1 APPLICATION TOPICALLY TWICE A DAY. APPLY TO RED AREAS IN SKIN FOLDS TWICE A DAY NEEDED, Pharmacy: [facility] Start Date: 06/02/23 Status: Ordered KlonoPIN 0.5 mg oral tablet Start: 05/28/23 2:09:00 PM EDT, 1 tab, PO, qid, Disp# 360 tab, Refills: 0, Note to Pharmacy: Needs to be Klonopin brand necessary, Brand Medically Necessary, Pharmacy: [facility] Start Date: 05/28/23 Status: Ordered losartan 25 mg oral tablet Start: 02/14/24 9:10:00 AM EDT, 1 tab, PO, Daily, Disp# 90 tab, Refills: 3, Pharmacy: [facility]/pharmacy #[id number] Start Date: 02/14/24 Status: Ordered magnesium aspartate [...] Daily, Disp# 90 tab, Refills: 3, Pharmacy: [facility] Start Date: 12/27/23 Status: Ordered Probiotic Formula Start: 02/08/18 10:16:00 AM EDT, 1 cap, PO, Daily Start Date: 02/08/18 Status: Ordered Repatha Prefilled Syringe 140 mg/mL subcutaneous solution Start: 04/11/24 9:04:00 AM EDT, 140 mg =, subQ, [id number], Disp# 6 unknown unit, Refills: 3, Pharmacy:[facility] [place] [id number] Start Date: 04/11/24 Status: Ordered Synthroid 50 [...] DAY UNTIL CLEAR THEN USE NEEDED, Pharmacy: [facility] Start Date: 08/24/23 Status: Ordered [...] Literacy Communication Barriers N ever Primary Language Macedonian Problem List Condition Confirmation Course Effective Dates [...] CT of Chest IMPRESSION: Pulmonary Emphysema [address] [facility] specialist Diagnosis Diagnosis Type Effective Dates Health Status Clinical Service Informant Preop examination Discharge Diagnosis 05/26/24 Non-Specified Procedures Procedure Date Related Diagnosis Body Site [...] of the results. 16:37 EDT - TONIA Saini Haley Ultrasound Thyroid Impression: 1. Atrophic thyroid gland [...] 51for excessive bleeding 522 0.4 cm nodules [id number]: normal 54No significant change compared to the prior study. No acute process. Large hiatal hernia again noted. 55Major osteoporotic based on dual femur right neck. 56both thumbs 57[facility] - Dr. Lora - left sacroiliac joint injection under fluoroscopic guidance. 58Left eye for glaucoma at [facility] 59Cortisone inj L. hip, & right shoulder & lidocaine inj in back the week of Dec 03, 2014. 60Right Shoulder and lower-mid back. -Steroid injection Vital Signs Most recent to oldest [Reference Range]: 1 Patient Weight 58.5 kg (05/25/24 1:23 PM) Temperature [36.5-37.9 DegC] 36.4 DegC *LOW* (05/25/24 1:23 PM) Heart Rate 75 bpm (05/25/24 1:23 PM) Respiratory Rate 17 br/min (05/25/24 1:23 PM) Blood Pressure 112/62mmHg (05/25/24 1:23 PM) Cuff Pulse Pressure 50 mmHg (05/25/24 1:23 PM) Social History Social History Type Response Tobacco Former smoker 1 Smoking Status Former Smoker, quit > 1 yr Sex Female Sex Representation Female (finding) 1smoked > 30 years, quited in 1992 FCM Outpt Note * AZAR Mccormick Danielle B: PERFORM Event Display: FCM Outpt Note Authored Date: [id number] Chief Complaint Pre-Op Clearance. Right Shoulder replacement on 06/05/24 History of Present Illness Patient is a 78-year-old female here for preop clearance. She is having right shoulderreplacement with Dr. Ervin Sahu on 06/05with general anesthesia. 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 They advised her to stop Eliquis 3 days priorto procedure. She already stopped her omega-3. Had bloodwork and EKGthrough PAT. Patient states she has had general anesthesia multiple times in the past without difficulty. No family history ofearly onset heart disease. Father passed awareof MD at age 84.Patient statesshe exercisesat least 3 times a week for 40 to 45 minutes on exercise bike without shortness of breath, chest pain,palpitations. Shewas a previous smoker who quit in 1992. Prior to that, smoked 1ppd for 30 years. Previous DVT after hip surgery in 2020. Patient states she travelled in a car for several hours within a few weeks of the procedure. Review of Systems Negative unless stated in HPI. Physical Exam Vitals & Measurements T:36.4C HR:75(Monitored) RR:17 BP:112/62 SpO2:97% WT:58.5kg WT:58.500kg(Dosing) PHQ2 Data(Data Documented on:05/25/2024 13:19) Emotional health assessment NEGATIVE CONSTITUTIONAL: Well-developed, well nourished. No acute distress. NEUROLOGICAL: Patient alert, orientated, memory intact. Gait steady. HEENT: Head is normocephalic. Eyes- symmetrical, no erythema or discharge.Oral- Oropharynx is clear, no erythema or exudate. Oral mucosa pink and moist. Lips are pink and moist, no lesions. Neck- Supple, no lymphadenopathy. LUNGS: Respirations even and unlabored, chest expansion symmetrical. Lung sounds clear in all lobes, no wheezing, crackles, or adventitious breath sounds. HEART: Rate and rhythm regular. No cardiac murmur, click, or rub noted. ABDOMEN: Soft, nontender. Bowel sounds active in all four quadrants. MUSCULOSKELETAL/EXTREMITIES: Extremities are intact, no redness or edema noted of upper or lower extremity. INTEGUMENTARY: Skin pink, dry, warm to touch. No rash, wounds, lesions noted on visible skin. PSYCHOSOCIAL: Calm and cooperative, interacts appropriately withstaff. Assessment/Plan 1.Preop examination Patient classified as low risk per Sammy Criteria. Medications and chronic health conditions optimized for surgery. Patient has already stopped fish oil and was advised by cardiology to stop Eliquis 3 days prior to procedure. -Patient verbalizes understanding regarding plan of care and all questions answered. Problem List/Past Medical History Ongoing ANXIETY Back [...] 140 mg/mL subcutaneous solution), 140 mg, subQ, [id number] fluticasone nasal(fluticasone 50 mcg/inh nasal spray), 2 [...] Sister. Stroke: Mother. Health Status Family Member(s) Immunizations Vaccine Date Status influenza virus vaccine, inactivated 07/07/2023 Given influenza virus vaccine, inactivated 07/01/2022 Given SARS-CoV-2 mRNA (toyuniern 5y-11y) 01/21/2022 Recorded SARS-CoV-2 (COVID-19) mRNA BNT-162b2 vax 07/14/2021 Recorded influenza virus vaccine, inactivated 07/07/2021 Recorded Comments : [facility] SARS-CoV-2 (COVID-19) mRNA BNT-162b2 vax 12/22/2020 Recorded Comments : 2021-07-21: Historical information-source unspecified SARS-CoV-2 (COVID-19) mRNA BNT-162b2 vax 11/24/2020 Recorded Comments : 2021-07-21: Historical information-source unspecified influenza virus vaccine, inactivated 08/02/2019 Given influenza virus vaccine, inactivated 07/21/2018 Given zoster vaccine, inactivated 06/13/2018 Given zoster vaccine, inactivated 02/08/2018 Given influenza virus vaccine, inactivated 07/28/2017 Given influenza virus vaccine, inactivated 07/29/2016 Given influenza virus vaccine, inactivated 06/19/2015 Given pneumococcal 13-valent vaccine 06/19/2015 Given tetanus/diphtheria/pertuss, acel (Tdap) 10/08/2014 Given Comments : Other : Late charting influenza virus vaccine, inactivated 07/27/2014 Given pneumococcal 23-valent vaccine 03/2011 Recorded pneumococcal 23-valent vaccine 03/18/2011 Recorded Comments : 2019-02-27: Historical information-source unspecified zoster vaccine live 02/2011 Recorded zoster vaccine live 02/15/2011 Recorded Comments : 2019-02-27: Historical information-source unspecified Recommendations Health Maintenance Pending(in the next year) OverDue Falls Plan of Care due06/25/22and every 1year Medicare Annual Wellness Visit due12/31/23and every 1year Adult Influenza Vaccine due04/16/24and every 1year Due Adult COVID-19 Vaccination due05/26/24Unknown Frequency Adult Social Determinants of Health Screening due05/26/24Unknown Frequency Satisfied(in the past 1 year) Satisfied Adult Influenza Vaccine on07/07/23.Satisfied by MERLIN Briggs Jenna Body Mass Index on01/31/24.Satisfied by MERLIN Briggs Jenna Breast Cancer Screening on07/08/23.Satisfied by PEPE Blake Lynnae Colorectal Cancer Screening on02/02/24.Satisfied by Contributor_system, [id number] Lipid Screening on01/10/24.Satisfied by Contributor_system, [email or web address] Electronic Signature on File Electronically Reviewed/Signed by: AZAR Morin Author Signature Dt/Tm:05/26/2024 03:06 PM Family Medicine DBN Patient Care team information Care Team Personnel Name: AZAR Blas, Thu Position: Nurse Pract - Family Med Member Role: Lifetime Relationship Address: [address] [place] [address] [place] Name: MD Salo, Adri Jonas Position: Physician - Gastro Member Role: Lifetime Relationship Address: [address] [place] [address] [place] Name: MD Watkins Juan Position: Physician - Family Med Member Role: Primary Care Provider Address: [address] [place] [address] Care Team Related Persons Name: DAVI BARBA
[2024-06-05] MEDS ORDERED: ROCURONIUM BROMIDE 10 MG/ML 5 ML VIAL IV ONE (07:05)
[2024-06-05] MEDS ORDERED: DEXAMETHASONE SOD INJ 4 MG/ML VIAL ONE (07:05)
[2024-06-05] MEDS ORDERED: LIDOCAINE 2% 2 ML VIAL/AMP(20MG/ML) INFIL ONE (07:05)
[2024-06-05] MEDS ORDERED: ONDANSETRON INJ 2 MG/ML 2 ML VIAL ONE (07:05)
[2024-06-05] MEDS ORDERED: fentaNYL citrate PF 100 MCG/2 ML VIAL ONE (07:05)
[2024-06-05] MEDS ORDERED: MIDAZOLAM HCL 1 MG/ML 2ML VIAL ONE (07:05)
[2024-06-05] MEDS ORDERED: GLYCOPYRROLATE 0.2 MG/ML VIAL ONE (07:05)
[2024-06-05] MEDS ORDERED: PROPOFOL IV EMULSION 10 MG/ML 20 ML VIAL IV ONE (07:05)
[2024-06-05] MEDS ORDERED: SUGAMMADEX SODIUM 200 MG/2 ML VIAL IV ONE (07:09)
[2024-06-05] MEDS: dexAMETHasone**PF** 10 MG/ML VIAL IV SCH (07:29)
[2024-06-05] MEDS: FAMOTIDINE 20 MG TAB PO SCH (07:30)
[2024-06-05] MEDS: LR 15ML/HR IV SCH (07:30)
[2024-06-05] MEDS: ACETAMINOPHEN 500 MG TAB PO SCH ×2 (07:30→14:54)
[2024-06-05] MEDS: LR 60ML/HR IV SCH (07:31)
[2024-06-05] MEDS: GABAPENTIN 300 MG CAP PO SCH (07:31)
[2024-06-05] MEDS: TRANEXAMIC ACID 1,000 MG **IV Pre-op IV SCH (07:47)
[2024-06-05] MEDS: ceFAZolin 2000MG 2,000 MG/15 ML SYR IV SCH ×2 (08:05→16:51)
[2024-06-05] MEDS ORDERED: PHENYLEPHRINE 100MCG/ML 10ML SYR IV ONE (08:30)
[2024-06-05] MEDS ORDERED: ePHEDrine sulfate 50 MG/5 ML SYR ONE (08:46)
[2024-06-05] MEDS: ROPIV 0.5% 246mg, Ketorolac 30mg, EPINEPHrine 0.5mg in NSS INFIL SCH (08:51)
[2024-06-05] MEDS: ORTHO JOINT ANESTHETIC ONE (08:51)
[2024-06-05] MEDS: TRANEXAMIC ACID 1,000 MG **IV Intra-op IV SCH (09:20)
--- NOTE | 2024-06-05 09:23 | Operative Report ---
PG Post Operative Report Pre & Post Diagnosis Operation Date: 06/05/24 08:00 Pre-Op Diagnosis: Cuff tear arthropathy of the right shoulder Post-Op Diagnosis: Cuff tear arthropathy of the right shoulder I identified the patient and participated in the time-out.: Yes Procedure Operation Date: 06/05/24 08:00 Actual Procedures p Right Reverse Total Shoulder Arthroplasty(Right) - Max Ling DO Surgeon Max Ling DO Job Trainer Max Paige PA-C Estimated Blood Loss 150 Findings Consistent with Post-Op Diagnosis Specimens Right humeral head Description of Procedure Implants used: I used a [employer]omet Comprehensive reverse total shoulder arthroplasty system with a size 7 press fit micro humeral stem, a +6 offset humeral tray and a standard humeral bearing, a 25 mm baseplate with a 6.5 mm central screw and 4 peripheral locking screws, and a size 36 mm eccentric glenosphere. Mari arrived at [facility] for the above procedure. She was seen in the preoperative holding area and the operative extremity was identified and signed. She was given a preoperative antibiotic, TXA, and an interscalene nerve block. She was taken back to the operating room, laid on table in supine position, and put under general anesthesia. She was then put into the beachchair position. The shoulder was then prepped and draped in sterile fashion. A timeout was done and the patient and the operative extremity was properly identified. A deltopectoral approach was used. Dissection was taken down through the fascia and the deltoid was retracted laterally and the conjoined tendon was retracted medially. The anterior shoulder was exposed. The biceps tendon was chronically torn. The subscapularis was then directly released off the lesser tuberosity with a peel technique. The inferior capsule was released and the humeral head was dislocated. A canal finding reamer was sent down the center of the humeral canal. Sequential reaming up to a size 7 reamer was done. Off that reamer, a proximal humeral resection guide was placed. The proximal humerus was resected at 135 of inclination and 25 of retroversion. Osteophytes were then removed and the glenoid was exposed. Time was spent doing a complete capsular and labral release. The glenoid guide was then placed in the inferior aspect of the glenoid. A 3.2 mm Steinmann pin was then placed into the glenoid vault at 10 of inclination. The glenoid baseplate was then reamed. The final size 25 mm baseplate was then impacted in the place. A 6.5 mm central screw was then placed followed by 4 peripheral locking screws. A 36 mm eccentric glenosphere was then impacted into place. Surrounding soft tissues were then injected with 100 cc an orthopedic pain control cocktail. The proximal humerus was then exposed. Sequential broaching of the humerus up to a size 7 broach was done. Off that broach a +6 offset humeral tray was trialed. The shoulder was then reduced, brought through a full range of motion, and felt to be stable. The shoulder was then dislocated and the broach was removed. The final size 7 micro press-fit humeral stem was then impacted into place. A standard humeral bearing was then snapped onto a +6 offset humeral tray. The humeral tray was then impacted onto the humeral stem. The shoulder was once again reduced, brought through a full range of motion, and felt to be stable. The subscapularis was poor quality and unable to be repaired. A dilute betadyne lavage was then done for 3 minutes. The joint was then irrigated with normal saline solution. Hemostasis was obtained. The interval was closed with 2-0 Vicryl suture. The skin was then closed with 2-0 Vicryl and christiana. A Silverlon dressing was placed and the arm was rested in a regular arm sling. She was then extubated and transferred to a hospital bed. She taken to the postanesthesia care unit in stable condition. She tolerated the procedure well. Max Paige PA-C, was present for the entire procedure. He was critical for patient positioning, prepping, draping, retraction exposure, wound closure and application of sterile dressing. I attest to the content of the Intraoperative Record and any orders documented therein. Any exceptions are noted below.
[2024-06-05] MEDS: DROPERIDOL 5 MG/2 ML VIAL IV PRN (10:00)
[2024-06-05] MEDS ORDERED: fentaNYL citrate PF 100 MCG/2 ML VIAL IV PRN (10:02)
[2024-06-05] MEDS ORDERED: ePHEDrine sulfate 50 MG/ML AMP IV PRN (10:02)
[2024-06-05] MEDS ORDERED: ATROPINE SULFATE 0.1 MG/ML 10ML SYR IV PRN (10:02)
[2024-06-05] MEDS: DROPERIDOL 5 MG/2 ML VIAL ONE (10:06)
--- NOTE | 2024-06-05 11:00 | XRay Report ---
XR shoulder RT min 2V routine CLINICAL HISTORY: Post shoulder surgery TECHNIQUE: 3 views of the right shoulder were obtained. Comparison: Comparison is made to right shoulder radiograph 03/16/2018 FINDINGS: Patient is status post shoulder arthroplasty with expected postsurgical changes including soft tissue swelling and subcutaneous emphysema. No periarticular lucency or hardware fracture is seen. IMPRESSION: Expected postoperative appearance status post placement of shoulder arthroplasty. ACT 112: Negative or not required by law. Electronically signed by: Alberto Jett M.D. 06/05/2024 10:59 AM
[2024-06-05] MEDS ORDERED: bisacodyL 10 MG SUPP PR PRN (11:29)
[2024-06-05] MEDS ORDERED: oxyCODONE HCL IR 5 MG TAB (IMMEDIATE RELEASE) PO PRN (11:29)
[2024-06-05] MEDS ORDERED: CIPROFLOXACIN HCL 0.3% OP SOLN 2.5 ML BTL OP PRN (11:29)
[2024-06-05] MEDS ORDERED: METOCLOPRAMIDE HCL INJ 5 MG/ML 2 ML VIAL IV PRN (11:29)
[2024-06-05] MEDS ORDERED: HYDROmorphone INJ 0.5 MG/0.5 ML SYR IV PRN (11:29)
[2024-06-05] MEDS ORDERED: MAGNESIUM HYDROXIDE SUSP 30 ML UDC PO PRN (11:29)
[2024-06-05] MEDS ORDERED: ONDANSETRON INJ 2 MG/ML 2 ML VIAL IV PRN (11:29)
[2024-06-05] MEDS ORDERED: NALOXONE HCL 0.4 MG/1 ML VIAL/CARP IV PRN (11:29)
[2024-06-05 11:34] VITALS: RESP 16
[2024-06-05] MEDS: SODIUM CHLORIDE 0.9% 1,000 ML IV SCH (11:43)
--- NOTE | 2024-06-05 11:43 | Anesthesiology Progress Note ---
Date of Service June 05, 2024 Anesthesia Post Procedure Vital Signs Vital Signs: Temp Pulse Pulse Resp BP Pulse Ox O2 Del Method 06/05/24 11:33 36.2 C L 75 16 124/75 93 Room Air 06/05/24 11:15 60 12 104/62 94 Room Air 06/05/24 11:05 67 13 110/54 L 92 Room Air 06/05/24 10:55 61 15 105/57 L 93 Room Air 06/05/24 10:45 59 L 15 117/53 L 94 Room Air 06/05/24 10:35 58 L 13 103/63 93 Room Air 06/05/24 10:25 61 12 106/57 L 94 Room Air 06/05/24 10:15 64 13 112/56 L 95 Room Air 06/05/24 10:05 67 12 104/60 97 Room Air 06/05/24 09:55 78 21 112/81 97 Room Air 06/05/24 09:45 75 15 118/58 L 97 Oxymask 06/05/24 09:39 36 C L 87 19 108/46 L 99 Oxymask 06/05/24 07:00 36.8 C 68 18 141/77 H 99 Room Air O2 Flow Rate 06/05/24 11:33 06/05/24 11:15 06/05/24 11:05 06/05/24 10:55 06/05/24 10:45 06/05/24 10:35 06/05/24 10:25 06/05/24 10:15 06/05/24 10:05 06/05/24 09:55 06/05/24 09:45 3 06/05/24 09:39 6 06/05/24 07:00 Transfer of Care Handoff Completed per policy Notes Mental Status: alert / awake / arousable Patient Amnestic to Procedure: Yes Nausea / Vomiting: adequately controlled Pain: adequately controlled Airway Patency, RR, SpO2: stable & adequate BP & HR: stable & adequate Hydration State: stable & adequate Anesthetic Complications: no major complications apparent and Pt Satisfied with anesthetic care
[2024-06-05] MEDS ORDERED: ACETAMINOPHEN W/CODEINE #3 1 TAB PO PRN (11:51)
[2024-06-05] MEDS: KETOROLAC TROMETHAMINE 15 MG/ML VIAL IV SCH (12:37)
[2024-06-05] MEDS: clonazePAM 0.5 MG TAB PO SCH (15:13)
[2024-06-05] MEDS: clonazePAM 0.5 MG TAB PO ONE (15:43)
[2024-06-05] MEDS: amLODIPine BESYLATE 5 MG TAB PO SCH (20:12)
[2024-06-05] MEDS: DOCUSATE SODIUM 100 MG CAP PO SCH (20:13)
[2024-06-05] MEDS: LOSARTAN POTASSIUM 25 MG TAB PO SCH (20:14)
[2024-06-05] MEDS: SENNA 8.6 MG TAB PO SCH (20:15)
[2024-06-05] MEDS: ESTROGENS, CONJUGATED 0.625 MG TAB PO SCH (20:21)
[2024-06-06] MEDS: LEVOTHYROXINE SODIUM 50 MCG TABLET PO SCH (06:04)
--- NOTE | 2024-06-06 07:06 | Orthopedic Progress Note ---
Date of Service June 06, 2024 Assessment & Plan (1) Status post reverse total replacement of right shoulder: Overall she is doing fairly well. She is not having much pain in the right shoulder. She will be seen by physical therapy today for ambulation and range of motion exercises. She can be discharged to home later today. She will follow with orthopedics in 2 weeks. Subjective Mari was seen and examined at bedside this morning. Overall she is doing fairly well. She is not having much pain in the right shoulder. She has been up and ambulating to the bathroom. She has no complaints.. Review of Systems All systems reviewed & are unremarkable except as noted in HPI & below. Physical Exam On physical examination the right shoulder, the dressing is now clean and dry. She is wearing her sling as instructed.. Results & Data Results & Data Laboratory Results . Diagnostic Findings Postoperative x-rays of the right shoulder show the prosthesis to be in anatomic alignment without any evidence of fracture, his cage, or loosening.. PG Care Time/CCT Total # of Minutes Spent Total Time Spent with Patient: Total time spent is greater than 50% in coordination of care (as documented) at patient's floor/unit and/or counseling patient: Coding Level of Care Code 70816 Post Operative Follow-Up Diagnoses Status post reverse total replacement of right shoulder Z96.611
--- NOTE | 2024-06-06 07:07 | Discharge Summary ---
Date of Service June 06, 2024 Principal Diagnosis Same as "Discharge Diagnosis" noted below under Discharge Instructions. Discharge Exam On physical examination the right shoulder, the dressing is now clean and dry. She is wearing her sling as instructed.. Discharge Data Procedures Performed Operation Date: 06/05/24 08:00 Actual Procedures p Right Reverse Total Shoulder Arthroplasty(Right) - Max Ling DO Ordered Studies 06/05/24 05:00 US - OR guided needle placemen Routine Hospital Course (1) Status post reverse total replacement of right shoulder: On June 05, 2024 Mari arrived at [facility] and underwent a right reverse shoulder replacement without complication. She had a general anesthetic and a right interscalene nerve block. Postoperatively she was placed in a sling and transferred to the general orthopedic floors. Her hospital course was uneventful. On postop day #1, her vital signs were stable and her pain was well-controlled. She was able to participate well with physical therapy doing ambulation and range of motion exercises. She was then discharged to home. She will follow-up orthopedics in 2 weeks. PG Care Time/CCT Total # of Minutes Spent Total Time Spent with Patient: Total time spent is greater than 50% in coordination of care (as documented) at patient's floor/unit and/or counseling patient: Discharge Plan Discharge Items Patient Disposition: Home - Self-Care Reason For Visit: Right Shoulder Degenerative Joint Disease Discharge Diagnosis: Right reverse shoulder replacement Activity: Per Instructions section Non-emergency contact: Surgeon Call non-emergency contact if: your wound has increased redness and your wound has increased drainage Follow-up/Referrals: Dean Watkins MD [Primary Care Provider] - Diet: Regular Addtl Attending Provider Instructions: Activity and Therapy Recommendations: * If you are using [facility] then therapy will be provided at your home until they feel you have accomplished all of your goals. * If you are using [facility] then Physical Therapy will be provided until they feel you are ready to start Outpatient Physical Therapy. * If you are not using home therapy then Outpatient Physical Therapy should start about 3-5 days from your day of surgery. Therapy will last about 8-12 weeks * Wear your sling for 3 weeks, unless otherwise instructed. You may remove your sling to shower and to dress, but otherwise, you should be in your sling at all times, including while sleeping * The shoulder replacement is very stable and you can use your hand while in the sling * You were shown a series of exercises in the hospital. Do these exercises daily including the exercises you were shown in physical therapy. Medications: * Narcotic You will likely be sent home from the hospital with a prescription for the narcotic pain medication that worked best throughout your stay. * Cefadroxil -take the antibiotic twice a day for 10 days to help prevent infection. * Other medications may be prescribed for specific circumstances. If you have a ny questions, please call the office at . * Resume previous home medications unless otherwise instructed Dressing Care: Leave the Silverlon dressing in place for 7 days. After 7 days you may remove the dressing. If the incision is not draining then you may leave the christiana open to air. If there is a little bit of drainage or if the christiana are getting stuck on your clothing then cover the incision with a dry dressing. The christiana will be removed at your 2 week follow-up appointment. Showering: You may shower with the Silverlon dressing in place. Do not let the shower spray hit the dressing directly. Pat the Silverlon dressing dry. If the dressing becomes wet underneath, then simply remove the dressing. Keep the incision dry until you are 7 days out from the day of surgery. After 7 days you may remove the Silverlon dressing and shower with the christiana exposed. Let soapy water run over the christiana and pat them dry. Do not scrub or soak the incision. Things To Watch For: * Drainage from the incision site that occurs more than one week after your surgery. * Increased redness at the incision site. * Fever above 102 degrees Fahrenheit. * Unusual chest pain or shortness of breath. * Call [facility] at with any of the above problems Follow-Up Visit: Follow-up with Dr. Ling's PA (Max Paige) 2-3 weeks after your day of surgery. He will remove your christiana and answer any questions. If you have any additional questions or concerns, Dr Ling is usually in the office at the same time and will be available An appointment was probably scheduled when you signed-up for surgery in the office. If you have any questions call More detailed instructions as well as Frequently Asked Questions were provided in a folder by our office when you signed-up for surgery. Please review these instructions when you get home. If you have any further questions or concerns, please feel free to call the office at [phone] Pending Studies at Discharge: No Stand-Alone Forms: [facility], Smoking Cessation Medications and DC Order Prescriptions: New acetaminophen-codeine 300-30 mg Tablet 1 tab PO Q4H PRN (Reason: pain) Qty: 30 0RF cefadroxil 500 mg capsule 500 mg PO BID 10 Days Qty: 20 0RF Continued ascorbic acid (vitamin C) [Vitamin C] 500 mg Tablet 500 mg PO QAM calcium carbonate [Tums] 200 mg calcium (500 mg) Tablet,Chewable 200 mg PO BID PRN (Reason: Heartburn) cholecalciferol (vitamin D3) [Vitamin D3] 2,000 unit Capsule 2,000 unit PO QAM multivitamin Tablet 1 tab PO QAM clonazepam [Klonopin] 0.5 mg Tablet 0.5 mg PO TID MDD 2 mg esomeprazole magnesium [Nexium] 40 mg Capsule,Delayed Release(Dr/Ec) 40 mg PO QPM diclofenac sodium [Voltaren] 1 % Gel 2 g TOPICAL QAM omega [id number] oil [Fish Oil] 1,000 mg (120 mg-180 mg) Capsule 1 cap PO QAM Probiotic 3 billion cell Capsule 3,000 mmu cells PO QAM levothyroxine 50 mcg Capsule 50 mcg PO QAM magnesium oxide 400 mg Capsule 400 mg PO QAM glucosamine-chondroitin [Osteo Bi-Flex] 250-200 mg Tablet 1 tab PO QAM Caltrate 600 plus D 600 mg (1,500 mg)-800 unit Tablet,Chewable 1 tab PO BID amlodipine 10 mg Tablet 10 mg PO HS Eliquis 5 mg Tablet 2.5 mg PO BID coenzyme Q10 [Co Q-10] 10 mg Capsule 10 mg PO QAM vitamin A 10,000 unit Tablet 1,500 mcg PO QAM docusate sodium [Colace] 100 mg Capsule 100 mg PO BID Repatha Syringe 140 mg/mL syringe 140 mg SUBCUT UD Rx Instructions: EVERY TWO WEEKS losartan 25 mg Tablet 25 mg PO QPM ciprofloxacin HCl 0.3 % Drops 1 - 2 drp OPHTHALMIC (EYE) UD PRN (Reason: "eye problems") Rx Instructions: put 1-2 drps in affected eye(s) every 2hr up to 8 times/day x2days; then 4 times/day x5days Premarin 0.625 mg Tablet 0.625 mg PO DAILY fluticasone propionate 50 mcg/actuation [place],Suspension 1 spray INTRANASAL DAILY Rx Instructions: administer into each nostril zinc Tablet,Chewable 1 tab PO DAILY teriparatide [Forteo] 20 mcg/dose (600mcg/2.4mL) Pen Injector 20 mcg SUBCUT DAILY Discharge Orders: Discharge Order (Routine); Ordered 06/06/24 Ordered By: Max Ling Admission Data Admit Date/Time: 06/05/24 09:42 Attending Provider: Max Ling Admit Provider: Max Ling Primary Care Provider: Dean Watkins
[2024-06-06 07:23] VITALS: BP 113/68; PULSE 63; TEMP 97.3; O2SAT 92
[2024-06-06] MEDS: FLUTICASONE PROPIONATE NA SPR 16 GM BTL SCH (07:32)
[2024-06-06] MEDS: APIXABAN 2.5 MG TAB PO SCH (07:33)
[2024-06-06] MEDS: dexAMETHasone 4 MG TAB PO SCH (07:33)
[2024-06-06] MEDS: MAGNESIUM OXIDE 400 MG TAB PO SCH (07:33)
[2024-06-06] MEDS: MULTIVITAMIN TAB PO SCH (07:34)
[2024-06-06] MEDS ORDERED: NON-FORMULARY MEDICATION (Multivitamin Tablet) PO SCH (09:00)
== END 2024-06-06 10:49 | disposition home or self-care (01) ==
LOC: ASU 06:42 → 3E 06:42